=== PATIENT | female | born 1955 | race Caucasian/White ===

== ENCOUNTER 2023-04-15 10:56 | Outpatient (OUT) | payer MEDICARE, SELFPAY ==
--- NOTE | 2023-04-15 10:57 | XR_ITS ---
The [address] [address] Patient Name: ADA TAO MRN: [id number] date: 1955 Sex: F Assigned Patient Location: [facility] Current Patient Location: [facility] Accession/Order Number: [id number] Exam Date: 04/15/2023 11:03 Report Date: 04/15/2023 16:21 At the request of: FAY LIMON Procedure: XR foot LT min 3V PROCEDURE: XR foot LT min 3V HISTORY: LEFT FOOT PAIN COMPARISON: XR foot left 01/21/2023 FINDINGS: BONES:Fusion of the first metatarsophalangeal joint via dorsal plate and screws; no evidence of hardware fracture. No bone fracture dislocation. SOFT TISSUES:No visible soft tissue swelling. EFFUSION:None visible. OTHER: Negative. IMPRESSION: 1. Stable surgical changes without evidence of hardware failure or change in alignment. Electronically authenticated by: SHANTA LEA Date: 04/15/2023 16:21
== END 2023-04-15 10:57 ==
LOC: RAD 10:56
PROVIDERS: PCP Family Medicine; Visit Provider Podiatrist Foot & Ankle Surgery
DX: M20.12 Hallux valgus (acquired), left foot (principal)
CPT/HCPCS: 73630

== ENCOUNTER 2023-06-18 12:57 | Outpatient (OUT) | payer MEDICARE, SELFPAY ==
--- NOTE | 2023-06-18 13:08 | CT_ITS ---
The [address] [address] Patient Name: ADA TAO MRN: [id number] date: 1955 Sex: F Assigned Patient Location: CT Current Patient Location: CT Accession/Order Number: [id number] Exam Date: 06/18/2023 13:02 Report Date: 06/18/2023 13:28 At the request of: CALOS HALLMAN Procedure: CT sinus wo con EXAM: CT sinus wo con HISTORY: D16.4 chronic sinusitis and drainage from the left side for the past year, worsening recently. COMPARISON: 11/01/2020 TECHNIQUE: Multiple thin computed tomograms of the paranasal sinuses were obtained, with sagittal and coronal reconstructions. Radiation reduction techniques and algorithms were utilized during the study. FINDINGS: The paranasal sinuses are well-developed and essentially clear. 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 The ostiomeatal complex on either side is patent. The orbital rims and floors are intact. The mayberry of the sinuses are intact. There is mild deviation of the nasal septum to the right, accompanied by an osteophyte also extending to the right. The nasal passages are widely patent. The temporal bones are out of the [id number]. The soft tissues of the posterior nasopharynx appear intact. CT/CT sinus wo con IMPRESSION: The paranasal sinuses are well-developed. Except for a benign bone structure on the left, the paranasal sinuses are clear. The ostiomeatal complex on either side is patent. There is mild deviation of the nasal septum to the right. The nasal passages are patent. The osseous structures are intact. Similar findings were noted in the prior study. Electronically authenticated by: FAY ROCK Date: 06/18/2023 13:28
== END 2023-06-18 12:58 | disposition home or self-care (01) ==
LOC: CT 12:57
PROVIDERS: PCP Family Medicine; Visit Provider Otolaryngology
DX: D16.4 Benign neoplasm of bones of skull and face (principal)
CPT/HCPCS: 70486

== ENCOUNTER 2023-08-06 08:29 | Outpatient (OUT) | payer MEDICARE, SELFPAY ==
--- NOTE | 2023-08-05 | XR_ITS ---
The [place] [id number] Patient Name: ADA TAO MRN: [id number] date: 1955 Sex: F Assigned Patient Location: [facility] Current Patient Location: [facility] Accession/Order Number: [id number] Exam Date: 08/05/2023 13:15 Report Date: 08/05/2023 16:17 At the request of: FAY LIMON Procedure: XR foot LT min 3V STUDY: XR foot LT min 3V, [id number] HISTORY: LEFT FOOT BUBION ECTOMY FOLLOW UP COMPARISON: Left foot x-ray 04/15/2023. FINDINGS/IMPRESSION: No acute fracture, dislocation, or suspicious osseous lesion. Left first metatarsophalangeal joint arthrodesis hardware is intact and similar alignment. 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 Small plantar calcaneal spur. Electronically authenticated by: ELLIS VILLARREAL Date: 08/05/2023 16:17
== END 2023-08-06 08:30 | disposition home or self-care (01) ==
LOC: RAD 08:30
PROVIDERS: PCP Family Medicine; Visit Provider Podiatrist Foot & Ankle Surgery
DX: M20.12 Hallux valgus (acquired), left foot (principal); Z98.1 Arthrodesis status; M89.572 Osteolysis, left ankle and foot; M77.32 Calcaneal spur, left foot
CPT/HCPCS: 73630

== ENCOUNTER 2023-09-16 12:31 | Outpatient (OUT) | payer MEDICARE, SELFPAY ==
[2023-09-16 13:36] LABS: Thyroid Stimulating Hormone 1.211 uIU/mL (0.358-3.740)
[2023-09-16 14:33] LABS: Free T4 1.04 ng/dL (0.76-1.46)
--- OUTSIDE RECORDS SUMMARY | 2023-10-27 14:21 | XMS_ITS | CCD ---
Author Name Unknown Address [address] [place] [address] Organization [facility] Care Team Providers Care Projection Technician Name Role Phone Joel Hola Hill Attending Unavailable MD Michelle Joshi Primary Care Provider [phone] DO Jeremy Mcpherson Referring Provider [phone] MD Teresa Nunn Attending Provider MD Michelle Joshi Primary Care Provider DO Jeremy Mcpherson Attending Provider DR EDER LUCIO V Consulting Unavailable ADI, DR MICHELLE Srinivasan Primary Care Unavailable FAY LIMON Attending Unavailable FAY LIMON Admitting Unavailable FAY LIMON Consulting Unavailable JOSHI, DR MICHELLE Srinivasan Primary Care Unavailable FAY LIMON Attending Unavailable FAY LIMON Admitting Unavailable JOSHI, DR MICHELLE Srinivasan Primary Care Unavailable HIGHLFAY LIVE Consulting Unavailable FAY LIMON Attending Unavailable FAY LIMON Admitting Unavailable JOSHI, DR MICHELLE Srinivasan Primary Care Unavailable FAY LIMON Consulting Unavailable FAY LIMON Attending Unavailable FAY LIMON Admitting Unavailable CAPELLAN, MIRIAM Consulting Unavailable JOSHI, DR MICHELLE Srinivasan Primary Care Unavailable REQUEST, DR BELL LISTED Consulting Unavaila ble REQUEST, DR BELL LISTED Attending Unavaila ble REQUEST, DR BELL LISTED Admitting Unavaila ble ADI, DR MICHELLE Srinivasan Primary Care Unavailable FAY LIMON Attending Unavailable FAY LIMON Admitting Unavailable WEST, DR EDER Verdin Consulting Unavailable FAY LIMON Consulting Unavailable LIZ OMALLEY Consulting Unavailable TARUN .JR Consulting Unavailable SALUD LAMB Consulting Unavailable BRIDGET KENDALL Consulting Unavailable NAVEED, DR EDER Verdin Consulting Unavailable ADI, DR MICHELLE Srinivasan Primary Care Unavailable BERNADETTE REYES Admitting Unavailable BERNADETTE REYES Attending Unavailable BERNADETTE REYES Consulting Unavailable JOSHI, DR MICHELLE E Primary Care Unavailable BERNADETTE REYES Attending Unavailable BERNADETTE REYES Admitting Unavailable WEST, DR EDER Verdin Consulting Unavailable BERNADETTE REYES Consulting Unavailable DR MICHELLE JOSIH Primary Care Unavailable BERNADETTE REYES Attending Unavailable BERNADETTE REYES Admitting Unavailable WEST, DR EDER Verdin Consulting Unavailable BERNADETTE REYES Consulting Unavailable FAY LIMON Attending Unavailable DR MICHELLE JOSHI Primary Care Unavailable FAY LIMON Admitting Unavailable WEST, DR EDER Verdin Consulting Unavailable FAY LIMON Consulting Unavailable Michelle Joshi Unavailable Jr Sarkar Unavailable Michelle Joshi Primary Care Unavailable Jr Sarkar Admitting Unavailable Jr Sarkar Attending Unavailable Michelle Joshi Primary Care Unavailable Itzkowitz, Jeremy Admitting Unavailable Itzmusa Jeremy Attending Unavailable ITZJEREMY KHAN H Attending Unavailable MICHELLE JOSHI Unavailable Allergies Allergy Classification Reported Allergen(s) Allergy Type Date of Onset Reaction(s) Facility (2 sources) Cream cheese Propensity to adverse reactions Gastrointestinal Upset [facility] (3 sources) egg extract; Translations: [Egg] Drug Allergy Diarrhea [facility] (2 sources) toft's ice cream Propensity to adverse reactions Gastrointestinal Upset [facility] (1 source) Ramipril Drug Allergy [facility] (4 sources) Phenazopyridine Drug Allergy 014 Unknown [employer] Other (4 sources) Eggs or Egg-derived Products Drug allergy 015 Unknown [employer] Other Medications Current Medications Medication Drug Class(es) Dates Sig (Normalized) Sig (Original) Calcium-Vitamin D3-Vitamin K (Viactiv) 650 mg-12.5 mcg-40 mcg Tablet,Chewable (2 sources) Start: 02-02-2020 take 1 tablet by mouth twice daily Calcium-Vitamin D3-Vitamin K (Viactiv) 650 mg-12.5 mcg-40 mcg Tablet,Chewable Active 1 TAB PO Twice daily February 02, 2020 12:00am Start: 02-02-2020 take 1 tablet by suze th twice daily Calcium-Vitamin D3-Vitamin K (Viactiv) 650 mg-12.5 mcg-40 mcg Tablet,Chewable Active 1 TAB PO Twice daily February 01, 2020 11:00pm cholecalciferol 0.01 mg oral capsule (2 sources) Vitamin D Start: 02-02-2020 take 1 capsule by mouth once daily Cholecalciferol (Vitamin D3) (Vitamin D3) 10 mcg (400 unit) Capsule Active 400 UNIT PO Daily February 02, 2020 12:00am famotidine 40 mg oral tablet (6 sources) Histamine-2 Receptor Antagonist Start: 08-28-2023 take 1 tablet by mouth at bedtime Famotidine 40 MG 1 tablet Orally at bedtime for 30 days Aug, Active Start: 12-05-2020 End: 04-16-2021 take 20 mg by mouth once daily Famotidine Discontinued 20 MG PO Daily December 05, 2020 1:00am April 16, 2021 1:31pm letrozole 2.5 mg oral tablet (16 sources) Aromatase Inhibitor Start: 11-04-2022 take 2.5 mg by mouth once daily Letrozole 2.5MG Letrozole( 2.5MG Oral daily ) Active -Hx Entry Oral daily for 0 *Pick strength-form from Codewise for eRX* Oct, Active Start: 10-16-2020 End: 10-17-2022 take 2.5 mg by mouth once daily Letrozole Discontinued 2.5 MG PO Daily 90 90 November 29, 2021 1:10pm October 17, 2022 3:14pm montelukast 10 mg oral tablet (6 sources) Leukotriene Receptor Antagonist Start: 02-02-2020 take 1 tablet by mouth once daily Montelukast Sodium 10MG Montelukast Sodium 10MG, 1 (one) Tablet Tablet daily # 90, 01/20/2022, Ref. x2. Active Oral daily for 0 *Pick strength-form from [employer] for eRX* Jan, Active omeprazole 40 mg delayed release oral capsule (6 sources) Proton Pump Inhibitor Start: 08-28-2023 take 1 capsule by mouth once daily Omeprazole 40 MG 1 capsule 30 minutes before morning meal Orally Once a day for 30 days Aug, Active Start: 12-05-2020 End: 04-16-2021 take 20 mg by mouth once daily Omeprazole Discontinued 20 MG PO Daily December 05, 2020 1:00am April 16, 2021 1:31pm Completed/Discontinued Medications Medication Drug Class(es) Dates Sig (Normalized) Sig (Original) acetaminophen 325 mg / HYDROcodone bitartrate 5 mg oral tablet (2 sources) Opioid Agonist Start: 02-07-2020 End: 05-30-2020 take 1 tablet by mouth every four to six hours Hydrocodone-Aceta minophen ([place]) 5-325 mg tablet Discontinued 1 - 2 TAB PO EVERY 4-6 HOURS 20 February 07, 2020 May 30, 2020 1:36pm alendronic acid 70 mg oral tablet (2 sources) Bisphosphonate Start: 02-02-2020 End: 10-17-2022 take 70 mg by mouth every week Alendronate Discontinued 70 MG PO every week February 02, 2020 12:00am October 17, 2022 3:04pm amoxicillin 500 mg / clavulanate 125 mg oral tablet (4 sources) Penicillin-class Antibacterial Start: 10-16-2020 End: 12-05-2020 take 1 tablet by mouth three times daily Amoxicillin-Pot Clavulanate (Augmentin) 500-125 mg Tablet Discontinued 1 TAB PO Three times daily 07 09October 16, 2020 4:04pm December 05, 2020 2:38pm anastrozole 1 mg oral tablet (8 sources) Aromatase Inhibitor Start: 02-23-2020 End: 10-16-2020 take 1 mg by mouth once daily Anastrozole Discontinued 1 MG PO Daily 90 90 February 23, 2020 9:41am October 16, 2020 3:46pm Hyaluronic Ls-Wysncejvj-Qmay (Radiaplexrx) Gel (2 sources) Start: 04-03-2020 End: 05-30-2020 Hyaluronic Kk-Azbncidfy-Argc (Radiaplexrx) Gel Discontinued 1 APPLIC TOPICAL Three times daily April 03, 2020 12:00am May 30, 2020 1:36pm Start: 04-03-2020 End: 05-30-2020 Hyaluronic Wx-Qggmynoro-Ehnk (Radiaplexrx) Gel Discontinued 1 APPLIC TOPICAL Three times daily April 02, 2020 11:00pm May 30, 2020 12:36pm ibuprofen 600 mg oral tablet (2 sources) Nonsteroidal Anti-inflammatory Drug Start: 02-07-2020 End: 05-30-2020 Ibuprofen Discontinued 600 MG PO EVERY 4-6 HOURS 28 08February 07, 2020 12:00am May 30, 2020 1:36pm do not exceed 4 doses in a 24 hour period Problems Active Problems Problem Classification Problem Date Documented Date Episodic/Chronic Acquired foot deformities (10 sources) Hallux valgus (acquired), left foot; Translations: [Other hammer toe(s) (acquired), left foot] Onset: 08-04-2022 Chronic Acquired foot deformities (13 sources) Other deformities of toe(s) (acquired), left foot; Translations: [Bunion of left foot] Onset: 07-23-2022 Episodic Asthma (5 sources) Unspecified asthma, uncomplicated; Translations: [Uncomplicated asthma] Onset: 04-13-2014 Chronic Cancer of breast (10 sources) Malignant tumor of breast ; Translations: [Malignant neoplasm of unspecified site of unspecified female breast] 03-22-2020 Chronic Chronic obstructive pulmonary disease and bronchiectasis (4 sources) Bronchitis; Translations: [Bronchitis, not specified as acute or chronic] Episodic Esophageal disorders (6 sources) Gastroesophageal reflux disease; Translations: [Gastro-esophageal reflux disease without esophagitis] Chronic Nutritional deficiencies (2 sources) Vitamin D deficiency; Translations: [Vitamin D deficiency, unspecified] Chronic Osteoarthritis (1 source) Unspecified osteoarthritis, unspecified site; Translations: [UNSPECIFIED OSTEOARTHRITIS UNS SITE] Onset: 08-21-2022 Chronic Osteoporosis (12 sources) Osteoporosis; Translations: [Age-related osteoporosis without current pathological fracture] Onset: 08-21-2022 10-16-2021 Chronic Other bone disease and musculoskeletal deformities (2 sources) Osteopenia; Translations: [Other specified disorders of bone density and structure, unspecified site] 04-17-2022 Episodic Other bone disease and musculoskeletal deformities (1 source) Other specified disorders of bone density and structure, unspecified site; Translations: [Disorder of bone and cartilage, unspecified] 10-17-2022 Episodic Other circulatory disease (4 sources) Elevated blood-pressure reading without diagnosis of hypertension; Translations: [Elevated blood-pressure reading, without diagnosis of hypertension] Episodic Other nutritional; endocrine; and metabolic disorders (4 sources) Body mass index 25-29 - overweight; Translations: [Body mass index (BMI) 27.0-27.9, adult] Episodic Other screening for suspected conditions (not mental disorders or infectious disease) (4 sources) Abnormal findings on diagnostic imaging of breast; Translations: [Other abnormal and inconclusive findings on diagnostic imaging of breast] Episodic Other skin disorders (1 source) Localized swelling, mass and lump, neck; Translations: [Localized swelling, mass and lump, neck] Onset: 09-14-2023 Episodic Other upper respiratory disease (4 sources) Allergic rhinitis; Translations: [Allergic rhinitis, unspecified] Chronic Other upper respiratory disease (2 sources) Congestion of nasal sinus; Translations: [Nasal congestion] 10-16-2020 Episodic Other upper respiratory disease (1 source) Nasal congestion; Translations: [Other disease of nasal cavity and sinuses] 10-17-2022 Episodic Spondylosis; intervertebral disc disorders; other back problems (1 source) Cervicalgia; Translations: [Cervicalgia] Onset: 09-14-2023 Episodic Thyroid disorders (4 sources) Hypothyroidism; Translations: [Hypothyroidism, unspecified] Chronic Unclassified (1 source) CONTACT W/AND (SUSP) EXPOS COVID-19; Translations: [CONTACT W/AND (SUSP) EXPOS COVID-19] Onset: 08-13-2022 Past or Other Problems Problem Classification Problem Date Documented Da te Episodic/Chronic Cancer of breast (2 sources) Personal history of malignant neoplasm of breast; Translations: [Personal history of malignant neoplasm of breast] Onset: 08-21-2022 Episodic Other aftercare (1 source) Other prison (current) drug therapy; Translations: [[employer] MANAGER CURRENT DRUG THERAPY] Onset: 08-21-2022 Episodic Other non-traumatic joint disorders (4 sources) Arthralgia of the lower leg; Translations: [Pain in right knee] Onset: 05-29-2015 Episodic Other upper respiratory infections (5 sources) Acute maxillary sinusitis; Translations: [Acute recurrent maxillary sinusitis] Onset: 03-21-2019 Episodic Results Test Name Value Interpretation Reference Range Facil ity US thyroidon 09-14-2023 thyroid [facility] Main [address] [address] Ultrasound Report Signed Patient: Laura Cunha MR#: [id number] 5 : 1955 Acct:[id number] Age/Sex: 68 / F ADM Date: 09/14/23 Loc: Room: Type: [facility] Attending Dr: Jr Sarkar APRN Ordering Provider: Jr Sarkar APRN Date of Service: 09/14/23 US/US thyroid: Neck pain;Neck nodule Copies to: Jr Sarkar APRN LIMITED ULTRASOUND - left neck CLINICAL DATA: Left neck pain and nodule in the submandibular region. COMPARISON: None The left submandibular area was scanned at the site of patient's symptoms. The stroboscope operator did not identify any obvious cystic or solid masses or pathologic adenopathy. The thyroid gland was also evaluated. The right lobe measures 3.8 x 1.1 x 1.1 cm. The left lobe measures 3.7 x 1.1 x 1.1 cm. The isthmus measures 1 - 2 mm. There is bilateral thyroid nodularity and the largest areas were measured. On the right medially toward the isthmus there is a complex cystic and solid nodule measuring 8 x 5 x 5 mm. There is a small colloid cyst at the lower pole on the right measuring 3 mm in size. There is also another subtle mixed echogenicity nodule at the midpole measuring 4 mm. On the left, there is a hypoechoic nodular area along the left aspect of the isthmus measuring 7 x 5 x 4 mm. At the midpole laterally there is another mixed echogenicity nodular area measuring 5 x 5 x 3 mm. US/US thyroid IMPRESSION: NO ULTRASOUND ABNORMALITIES IDENTIFIED AT THE SITE OF PALPABLE CONCERN IN THE LEFT SUBMANDIBULAR REGION. SMALL BILATERAL THYROID NODULES. Impression dictated by: Rachael Gomez M.D.09/14/2023 5:49 PM Dictation Location: [place] [address] Tech: Taryn Carmenza Transcribed By: ESTRADA 09/14/231748 Dictated By: Rachael Gomez MD 09/14/231739 Signed By: 09/14/231748 [facility] [place] [facility] MM diagnostic mammo BI w/CAD on 02-25-2023 MM diagnostic mammo BI w/CAD [facility] [address] Mammography Report Signed Patient: Laura Cunha MR#: [id number] 5 : 1955 Acct:[id number] Age/Sex: 67 / F ADM Date: 02/25/23 Loc: [place] Room: Type: [facility] Attending Dr: Jeremy Mcpherson DO Copies to: DO Michelle Astudillo MD Ordering Provider: Jeremy Mcpherson DO Date of Service: 02/25/23 MM/MM diagnostic mammo BI w/CAD: Yrly mamms;History of breast cancer CLINICAL DATA: History of left-sided breast cancer status post lumpectomy with radiation. BilateralDIAGNOSTIC MAMMOGRAM - WITH TOMOSYNTHESIS AND CAD COMPARISON:Mammograms dating back to 2019 Tomosynthesis imaging was obtained using low-dose digital technique. This examination was reviewed with the aid of CAD. FINDINGS: The breasts are composed of scattered fibroglandular densities. Stable post treatment changes left breast. No new areas of architectural distortion, worrisome masses or suspicious microcalcifications. MM/MM diagnostic mammo BI w/CAD IMPRESSION: NO MAMMOGRAPHIC EVIDENCE OF MALIGNANCY. ROUTINE FOLLOW-UP IS RECOMMENDED IN ONE YEAR. RESULT CODE: 1 Negative DENSITY CODE: 2 (approximately 25-50% glandular) FOLLOW UP: 1YR The false-negative rate of mammography is approximately 10-percent. Management of a palpable abnormality must be based on clinical grounds. Patient was entered into a reminder system with a target due date for the next mammogram. Impression dictated by: Bertrand Mark Jr., D.OErin02/25/2023 2:09 PM Dictation Location: [facility] Transcribed By: [facility] 02/25/23 1409 Dictated By: Bertrand Mark Jr, DO 02/25/23 1408 Signed By: 02/25/23 1409 [facility] POINT OF CARE GLUCOSEon Glucose [Mass/Vol] 93 mg/dL Normal 74-106 [facility] Comment on above: Performed By: #### P OCGLUC #### [facility] [address] [address] [address] Niraj Hernandez Covid-19 PCR (CVDTB)on SARS-CoV-2 (COVID-19) RNA LASHELL+probe Ql (Unsp spec) Not detected Normal NOT DETECTED [facility] Comment on above: Result Comment: This test is not yet approved or cleared by the [place] FDA. When there are no FDA-approved or cleared tests available, and other criteria are met, FDA can make tests available under an emergency access mechanism called an Emergency Use Authorization (EUA). The EUA for this test is supported by the [place] of Health and Human Service's (HHS's) declaration that circumstances exist to justify the emergency use of in vitro diagnostics for the detection and/or diagnosis of the virus that causes COVID-19. This EUA will remain in effect (meaning this test can be used) for the duration of the COVID-19 declaration justifying emergency of IVDs, unless it is terminated or revoked by FDA (after which the test may no longer be used). When diagnostic testing is negative, the possibility of a false negative should be considered in the context of a patient's recent exposures and the presence of clinical signs and symptoms consistent with SARS-CoV-2. Performed By: #### C VDTBH #### [facility] [address] [place], [place] [address] Dr. Niraj Hernandez CBC AUTO DIFFon 06-28-2022 BASO # 0.0 103/ul Normal 0.0-0.1 [facility] Comment on above: Performed By: #### D ATCBC ####[facility] [address] [place], [place] [address]NlErin Hernandez Basophils/100 WBC (Bld) 0.4 % Normal 0.2-2.[address] [facility] Comment on above: Performed By: #### D ATCBC ####[facility] [address] [place], [place] [address]LpErin Hernandez EO # 0.9 103/ul Critically high 0.0-0.7 [facility] Comment on above: Performed By: #### D ATCBC ####[facility] [address] [place], [place] [address]WzErin Hernandez Eosinophils/100 WBC (Bld) 12.4 % Critically high 0.9-7 .0 [facility] Comment on above: Performed By: #### D ATCBC ####[facility] [address] [place], [place] [address]Dr. Olyalogan David Erythrocyte distribution wid th (RBC) [Ratio] 13.5 % Normal 11.0-15.0 [facility] Comment on above: Performed By: #### D ATCBC ####[facility] [address] [place], [place] [address]Dr. Niraj Hernandez Hematocrit (Bld) [Volume fraction] 43.2 % Normal 3 6.0-48.0 [facility] Comment on above: Performed By: #### D ATCBC ####[facility] [address] [place], [place] [address]Dr. Niraj Hernandez Hemoglobin (Bld) [Mass/Vol] 14.3 g/dL Normal 12.0-16. 0 [facility] Comment on above: Performed By: #### D ATCBC ####[facility] [address] [place], [place] [address]Dr. Niraj Hernandez IG # 0.01 10e3/ul Normal 0.00-0.03 [facility] Comment on above: Performed By: #### D ATCBC ####[facility] [address] [place], [place] [address]Dr. Niraj Hernandez IG % 0.1 % Normal 0.0-0.5 [facility]ital Comment on above: Performed By: #### D ATCBC ####[facility] [address] [place], [place] [address]Dr. Niraj Hernandez LYMPH # 2.8 103/ul Normal 1.2-3.8 [facility]ital Comment on above: Performed By: #### D ATCBC ####[facility] [address] [place], [place] [address]Dr. Niraj Hernandez Lymphocytes/100 WBC (Bld) 38.4 % Normal 20.5-60.0 [facility] Comment on above: Performed By: #### D ATCBC ####[facility] [address] [place], [place] [address]Dr. Niraj Hernandez MCH (RBC) [Entitic mass] 29.8 pg Normal 26.7-34.0 [facility] Comment on above: Performed By: #### D ATCBC ####[facility] [address] [place] [address]Dr. Niraj Hernandez MCHC (RBC) [Mass/Vol] 33.1 g/dL Normal 29.9-35.2 [facility] Comment on above: Performed By: #### D ATCBC ####[facility] [address] [place], [place] [address]Dr. Niraj Hernandez MCV (RBC) [Entitic vol] 90.0 fL Normal 81.0-99.[address] [facility] Comment on above: Performed By: #### D ATCBC ####[facility] [address] [place], [place] [address]Dr. Niraj Hernandez MONO # 0.6 103/ul Normal 0.3-0.8 [facility] Comment on above: Performed By: #### D ATCBC ####[facility] [address] [place], [place] [address]Dr. Niraj Hernandez Monocytes/100 WBC (Bld) 8.4 % Normal 1.7-12.[address] [facility] Comment on above: Performed By: #### D ATCBC ####[facility] [address] [place], [place] [address]Dr. Niraj Hernandez NEUT # 2.9 103/ul Normal 1.4-6.5 [facility] Comment on above: Performed By: #### D ATCBC ####[facility] [address] [place], [place] [address]Dr. Niraj David Neutrophils/100 WBC (Bld) 40.3 % Critically low 43.0-7 5.0 [facility] Comment on above: Performed By: #### D ATCBC ####[facility] [address] [place], [place] [address]Dr. Niraj David Platelet mean volume (Bld) [Entitic vol] 9.1 fL Critically low 9.5-13.5 [facility] pital Comment on above: Performed By: #### D ATCBC ####[facility] [address] [place], [place] [address]Mj. Niraj Hernandez PLT 258 103/ul Normal 150-450 [facility] Comment on above: Performed By: #### D ATCBC ####[facility] [address] [place], [place] [address]Ow. Niraj Hernandez RBC 4.80 106/ul Normal 4.20-5.40 [facility] Comment on above: Performed By: #### D ATCBC ####[facility] [address] [place], [place] [address]Fk. Niraj Hernandez WBC 7.3 103/ul Normal 4.0-11.0 [facility] Comment on above: Performed By: #### D ATCBC ####[facility] [address] [place] [id number]. Niraj Hernandez BRAVO- BMP WITH LIPIDon 2021 Anion gap [Moles/Vol] 11.9 mmol/L Normal [facility] Comment on above: Performed By: #### D ATBMP #### [facility] [address] [address] [address] Niraj Hernandez Calcium [Mass/Vol] 9.7 mg/dL Normal 8.5-10.1 [facility] Comment on above: Performed By: #### D ATBMP #### [facility] [address] [address] [address] Niraj Hernandez Chloride [Moles/Vol] 101 mmol/L Normal 98-107 [facility] Comment on above: Performed By: #### D ATBMP #### [facility] [address] [address] [address] Niraj Hernandez Cholesterol [Mass/Vol] 208 mg/dL Critically high <=200 [facility] Comment on above: Performed By: #### D ATBMP #### [facility] [address] [address] [address] Niraj Hernandez Cholesterol in HDL [Mass/Vol] 66 mg/dL Critically high 4 0-60 [facility] Comment on above: Performed By: #### D ATBMP #### [facility] [address] [address] [address] Niraj Hernandez Cholesterol in LDL [Mass/Vol] 125.2 mg/dL Normal [facility] Comment on above: Performed By: #### D ATBMP #### [facility] [address] [address] [address] Niraj Hernandez CO2 [Moles/Vol] 31.1 mmol/L Normal 21.0-32.0 [facility] Comment on above: Performed By: #### D ATBMP #### [facility] [address] [address] [address] Niraj Hernandez Creatinine [Mass/Vol] 0.86 mg/dL Normal 0.55-1.02 [facility] Comment on above: Performed By: #### D ATBMP #### [facility] [address] [address] [address] Niraj Hernandez EGFR-AF ERITREAN >60 Normal >=60 [facility] Comment on above: Performed By: #### D ATBMP #### [facility] [address] [address] [address] Niraj Hernandez EGFR-NON AF ERITREAN >60 Normal >=60 [facility] Comment on above: Performed By: #### D ATBMP #### [facility] [address] [address] [address] Niraj Hernandez Glucose [Mass/Vol] 103 mg/dL Normal 74-106 [facility] Comment on above: Performed By: #### D ATBMP #### [facility] [address] [place] [address] Dr[address] Niraj Hernandez HDL NORMAL > or = 60 mg/dl - LO W CARDIOVASCULAR RISK <40 mg/dl - HIGH CARDIOVASCULAR RISK Normal [facility] Comment on above: Performed By: #### D ATBMP #### [facility] [address] [address] [address] Niraj Hernandez LDL CALC NORMAL SEE BELOW Normal [facility] Comment on above: Result Comment: <100 mg/dl OPTIMAL 100 - 129 mg/dl NEAR OR ABOVE OPTIMAL 130 - 159 mg/dl BORDERLINE HIGH 160 - 189 mg/dl HIGH >190 mg/dl VERY HIGH Performed By: #### D ATBMP #### [facility] [address] [address] [address] Niraj Hernandez Potassium [Moles/Vol] 4.0 mmol/L Normal 3.5-5.1 [facility] Comment on above: Performed By: #### D ATBMP #### [facility] [address] [address] [address] Niraj Hernandez Sodium [Moles/Vol] 140 mmol/L Normal 136-145 [facility] Comment on above: Performed By: #### D ATBMP #### [facility] [address] [place] [address] Dr. Niraj Hernandez Triglyceride [Mass/Vol] 84 mg/dL Normal <=[address] [facility] Comment on above: Performed By: #### D ATBMP #### [facility] [address] [address] [address] Niraj Hernandez Urea nitrogen [Mass/Vol] 17.0 mg/dL Normal 7.0-18.0 [facility] Comment on above: Performed By: #### D ATBMP #### [facility] [address] [place] [address] Dr. Niraj Hernandez Urea nitrogen/Creatinine [Mass ratio] 19.8 mg/mg Normal [facility] Comment on above: Performed By: #### D ATBMP #### [facility] [address] [place] [address] Dr. Niraj Hernandez VLDL CALC 16.8 mg/dL Normal [facility] Comment on above: Performed By: #### D ATBMP #### [facility] [address] [place], [place] [id number] Dr. Niraj Hernandez Vital Signs Date Time Vital Sign Value Performing Clinician Facility 06-29-2023 13:30-0400 Body height 154.94 cm Michelle Joshi Other [facility] Other 06-29-2023 13:30-0400 Body mass index (BMI) [Ratio] 27.21 kg/m2 Michelle Joshi Other [facility] Other 06-29-2023 13:30-0400 Body weight 65.32 kg Michelle Joshi Other [facility] Other 06-29-2023 13:30-0400 Diastolic blood pressure 78 mm[Hg] Michelle Joshi Other [facility] Other 06-29-2023 13:30-0400 Systolic blood pressure 138 mm[Hg] Michelle Joshi Other [facility] Other 10-17-2022 14:06-0500 Body temperature 97.8 [degF] MD Michelle Joshi Work Phone: [facility] 10-17-2022 14:06-0500 Body weight 64.9 kg MD Michelle Joshi Work Phone: [facility] 10-17-2022 14:06-0500 Diastolic blood pressure 87 mm[Hg] MD Michelle Joshi Work Phone: [facility] 10-17-2022 14:06-0500 Heart rate 102 /min MD Michelle Joshi Work Phone: [facility] 10-17-2022 14:06-0500 Respiratory rate 16 /min MD Michelle Joshi Work Phone: [facility] 10-17-2022 14:06-0500 SaO2% (BldA) [Mass fraction] 99 % MD Michelle Joshi Work Phone: [facility] 10-17-2022 14:06-0500 Systolic blood pressure 122 mm[Hg] MD Michelle Joshi Work Phone: [facility] 12-05-2020 13:41-0500 Body height 154.94 cm MD Michelle Joshi Work Phone: [facility] Encounters Encounter Date Encounter Type Care Provider Facility Start: 09-25-2023 End: 09-25-2023 ambulatory JEREMY MCPHERSON Not Available Start: 09-17-2023 End: 09-17-2023 ambulatory Michelle Joshi Other [facility] Other Start: 09-17-2023 [address]phone [address] Joshi [facility] Start: 09-14-2023 End: 09-14-2023 ambulatory Michelle Joshi Facility:[facility] Start: 09-03-2023 End: 09-03-2023 ambulatory Jr Sarkar Other [facility] Other Start: 09-03-2023 Telephone encounter Jr Chavez PG [employer] Manager Start: 06-29-2023 End: 06-29-2023 ambulatory Michelle Joshi Other [facility] Other Start: 06-29-2023 Patient encounter procedure Michelle Joshi [facility] Start: 02-25-2023 End: 02-25-2023 ambulatory Michelle Joshi Facility:[facility] Start: 02-25-2023 End: 02-25-2023 ambulatory MD Michelle Joshi Work Phone: [facility] Work Phone: Start: 02-25-2023 End: 02-25-2023 Patient encounter procedure MD Michelle Joshi Work Phone: [facility] Work Phone: Start: 01-21-2023 End: 01-22-[address] EDER LUCIO Facility:[facility] Start: 11-04-2022 End: 11-05-[address] EDER LUCIO Facility:[facility] Start: 10-17-2022 End: 10-17-2022 ambulatory MD Michelle Joshi Work Phone: [facility] Work Phone: Start: 10-17-2022 End: 12-09-2022 Registered Recurring MD Michelle Joshi [facility] Phone: [facility] Start: 09-23-2022 End: 09-24-[address] MICHELLE JOSHI Facility:[facility] Start: 09-23-2022 Adult health examination Zunilda Joshi Other [facility] Other Start: 09-04-2022 End: 09-05-[address] MICHELLE JOSHI Facility:[facility] Start: 08-14-2022 End: 08-14-[address] MICHELLE JOSHI Facility:[facility] Start: 08-13-2022 Encounter for preprocedural laboratory examination [facility] Start: 08-12-2022 End: 08-12-[address] MICHELLE JOSHI Facility:[facility] Start: 08-11-2022 End: 08-12-[address] MICHELLE JOSHI Facility:[facility] Start: 08-11-2022 End: 08-12-2022 Encounter for preprocedural laboratory examination DR MICHELLE JOSHI Facility:[facility] Start: 08-04-2022 Encounter for preprocedural cardiovascular examination FAY LIMON [facility] Start: 07-31-2022 End: 08-01-[address] MICHELLE JOSHI Facility:[facility] Start: 07-31-2022 End: 08-01-2022 Encounter for preprocedural cardiovascular examination DR MICHELLE JOSHI Facility:[facility] Start: 07-23-2022 End: 07-24-2022 ambulatory FAY LIMON Facility:[facility] Start: 06-28-2022 End: 06-29-[address] MICHELLE JOSHI Facility:[facility] Start: 04-17-2022 ambulatory Hola Maldonado [facility] ity:[id number] Procedures Date Procedure Procedure Detail Performing Clinician Start: 02-25-2023 Bilateral mammography Sierra Joshi Work Phone: Start: 04-24-2021 Dual energy X-ray absorptiometry MD Michelle Joshi Work Phone: Start: 05-29-2015 Screening for malign ant neoplasm of breast Michelle Joshi Other Screening for malign ant neoplasm of colon Michelle Joshi Other Plan of Treatment Date Care Activity Detail Author [facility] Payers Date Payer Category Payer Private Health Insurance [id number] 1960 Self-pay [id number] 1955 Unknown [id number] 1955 Unknown [id number] 1954 Unknown [id number] 1954 Unknown [id number] 1954 Unknown [id number] 1954 Unknown [id number] 1954 Unknown [id number] 1954 Unknown [id number] 1954 Unknown [id number] [id number] 1954 Unknown [id number] [id number] 1954 Unknown [id number] Medicare [id number] Unknown MMO [id number] Unknown Regular Insurance [id number] Unknown [id number] Social History Date Type Detail Facility Start: 04-17-2022 End: 10-17-2022 Tobacco smoking status NHIS Never smoked tobacco (finding) [facility] Start: 1955 Sex Assigned At Female F [facility] Sex Assigned At Sex Assigned At Bir th [facility] Other Clinical Notes 02-23-2020 to 06-29-2023 Note Date & Type Note Facility 06-29-2023 Evaluation note Encounter Date Diagnosis Assessment Notes Jun, Medicare annual wellness visit, subsequent (ICD-10 - Z00.00) Personalized health advice was given to the beneficiary including a written plan for screenings discussed and provided. Advanced care planning reviewed and/or information given as requested. Additional counseling was provided here today in regards to, [ ]. The above visit was performed by [ ], under direct supervision of [ ]. Document reviewed and amended by provider signed below. Jun, Postnasal drip (ICD-10 - R09.82) Reviewed CT of sinuses from 06/18. She has not had a laryngoscope exam. With her breast cancer history she is concerned that her intermittent LN in L anterior neck is cancer. Reassurance provided. Recommended flonase until her followup appt with Dr. Little on 07/08. [facility] Other 03-15-2023 NotePROCEDURE: XR FOOT LT MIN 3 VIEWS COMPARISON: 11/04/2022 HISTORY: Pain in left foot FINDINGS: BONES:Stable fusion first metatarsal-phalangeal joint with a dorsal plate and screws. Stable resection head of 2nd proximal phalynx SOFT TISSUES:Negative. No visible soft tissue swelling. EFFUSION:None visible. OTHER: Negative. IMPRESSION: Stable exam Electronically authenticated by: EDER LUCIO Date: 2023-01-21 14:[address] [place], [place] [address]12-27-2022 NotePROCEDURE: XR FOOT LT MIN 3 VIEWS COMPARISON: 09/23/2022 HISTORY: Pain in left foot FINDINGS: BONES:Stable fusion the first metatarsal phalangeal joint with a dorsal plate and multiple screws. Remote resection head of the second proximal phalanx. No acute fracture, dislocation or mechanical failure SOFT TISSUES:Negative. No visible soft tissue swelling. EFFUSION:None visible. OTHER: Negative. IMPRESSION: Stable fusion first metatarsal-phalangeal joint Electronically authenticated by: EDER LUCIO Date: 2022-11-04 16:53[facility]11-15-2022 NotePROCEDURE: XR FOOT LT MIN 3 VIEWS COMPARISON: None. HISTORY: Pain in left foot FINDINGS: BONES:Fusion the first metatarsal-phalangeal joint with a dorsal plate and screws. No acute fracture, dislocation or mechanical failure. SOFT TISSUES:Negative. No visible soft tissue swelling. Interval removal of surgical skin cathleen EFFUSION:None visible. OTHER: Negative. IMPRESSION: Stable first metatarsal-phalangeal joint fusion Electronically authenticated by: EDER LUCIO Date: 2022-09-23 15:48[facility]10-27-2022 NotePROCEDURE: XR FOOT LT MIN 3 VIEWS COMPARISON: 08/14/2022 HISTORY: Pain in left foot FINDINGS: BONES:Fusion of the first metatarsal-phalangeal joint with a plate and screws. No acute fracture or dislocation. SOFT TISSUES:Soft tissue swelling with surgical skin cathleen EFFUSION:None visible. OTHER: Negative. IMPRESSION: Stable first metatarsal-phalangeal joint fusion Electronically authenticated by: EDER LUCIO Date: 2022-09-04 19:07[facility]10-06-2022 NotePROCEDURE: XR FOOT LT MIN 3 VIEWS COMPARISON: 07/23/2020 HISTORY: Surgical procedure FINDINGS: BONES:Interval reduction in hallux valgus with first metatarsal-phalangeal joint fusion utilizing a dorsal plate and multiple screws. Anatomic alignment.. SOFT TISSUES:Soft tissue swelling and surgical skin cathleen EFFUSION:None visible. OTHER: Bone detail obscured by a posterior cast IMPRESSION: First metatarsal-phalangeal joint fusion Electronically authenticated by: EDER LUCIO Date: 2022-08-14 17:44[facility]10-06-2022 NoteEXAM: XR FOOT LT 2V HISTORY: Surgical procedure COMPARISON: None. TECHNIQUE: 13 fluoroscopic images FINDINGS: Fluoroscopic images demonstrate reduction in hallux valgus and dorsal fusion of the first metatarsal-phalangeal joint with a plate and screws IMPRESSION: First metatarsal-phalangeal joint fusion Electronically authenticated by: EDER LUCIO Date: 2022-08-14 17:42[facility]09-14-2022 NotePROCEDURE: XR FOOT LT MIN 3 VIEWS COMPARISON: None. HISTORY: Pain in left foot FINDINGS: BONES:Marked hallux valgus. No acute fracture or dislocation. SOFT TISSUES:Negative. No visible soft tissue swelling. EFFUSION:None visible. OTHER: Negative. IMPRESSION: Marked hallux valgus Electronically authenticated by: EDER LUCIO Date: 2022-07-23 13:13[facility]06-09-2022 Progress note Author Hola Maldonado [facility] April 17, 2022 2:18pm Note Date/Time April 17, 2022 2:04p [facility] [place] [address] Hem/Onc Follow Up Note - OP Signed Patient: Laura Cunha MR#: [id number] : 1955 Acct:[id number] Age/Sex: 66 / F Type: REG RCR Copies to: DO Michelle Astudillo MD~ Subjective Date/Time of Service: Date of Service: 04/17/2022 Time of Service: 14:04 Chief Complaint: Patient is here today for 6 month follow up visit for breast cancer. She had her mamogram back in February 2022 HPI: Laura presents in follow-up on letrozole. Laura is a 66-year-old female who presented 02/23/20 with breast cancer. She underwent left lumpectomy and sentinel lymph node biopsy 02/07/20, pathology reported a 1 cm ER positive, MD positive, HER-2 negative invasive ductal carcinoma with tubulo- ?lobular features, grade 1, 0 of 4 lymph nodes involved. After radiation she was started on anastrazole February 2020. In September 2020 shewas seen in follow-up with complaint of new right shoulder pain. The anastrozole was stopped, and the right shoulder pain resolved. She started letrozole 2.5 mg daily and she has tolerated this medicine really well without any problems. Specifically there are no complaints of joint pain. Her DEXA scan in April 2021 showed osteopenia in L spine (T -1.2). Her last mammogram in February 2022 was benign. - Summary of Therapies Summary of Therapies: Anastrozole started February 2020. This was then changed to letrozole due to intolerance to anastrozole. Subjective/ROS - Narrative: Constitutional: [No fever or weight loss.] Eyes: [No visual changes or eye pain.] Ear, Nose and throat: [No congestion, sore throat, sinusitis or ear pain.] Cardiovascular: [No palpitations, dyspnea on exertion, edema, syncope or claudication.] Respiratory: [No shortness of breath, cough, congestion, wheezing or sputum production.] Gastrointestinal: [No abdominal pain, hematemesis, melena, nausea, vomiting, diarrhea, or reflux disease.] Genitourinary: [No dysuria, urgency, or burning with urination.] Musculoskeletal: [No muscle or joint pain. No current cervical, thoracic or lumbar pain or immobility.] Skin: [No rash, pruritus, ulcerations.] Neurologic: [No headache, vertigo, weakness, numbness or tingling. No syncope described.] Endocrine: [No polyuria, polydipsia, heat or cold intolerance. No history of thyroid disease.] Psychiatric: [No hallucinations, new stressors, or change in sleep patterns.] Hematologic: [No abnormal bleeding or bruising. No lymphadenopathy noted.] Immunologic: [No history of frequent infections or delayed wound healing.] [facility] - Medical History Medical History: Medical History (Last Reviewed 03/22/20 @ 14:19 by Teresa Nunn MD) Asthma Breast cancer left Endometriosis determined by laparoscopy Nasal drainage Osteoporosis - Surgical History Surgical History: Surgical History (Last Reviewed 03/22/20 @ 14:19 by Teresa Nunn MD) History of nasal cauterization hx nasal fissure - Family History Family History: Family History (Last Reviewed 03/22/20 @ 14:19 by Teresa Nunn MD) Mother Renal failure HTN (hypertension) Father Pancreatic cancer Brother Pancreatitis - Social History Smoking Status: Never smoker Substance Use Type: None Home Medications & Allergies Allergies egg Adverse Reaction (Verified 04/17/22 13:32) Diarrhea cream cheese Adverse Reaction (Uncoded 04/17/22 13:32) Gastrointestinal Upset toft's ice cream Adverse Reaction (Uncoded 04/17/22 13:32) Gastrointestinal Upset Home Medications alendronate 70 mg tablet 70 mg PO QWEEK 02/02/20 [History Confirmed 04/17/22] calcium 650 mg-vitamin D3 12.5 mcg-vitamin K 40 mcg chewable tablet (Viactiv) 1 tab PO BID 02/02/20 [History Confirmed 04/17/22] cholecalciferol (vitamin D3) 10 mcg (400 unit) capsule (Vitamin D3) 400 unit PO DAILY 02/02/20 [History Confirmed 04/17/22] montelukast 10 mg tablet 10 mg PO QPM 02/02/20 [History Confirmed 04/17/22] letrozole 2.5 mg tablet 2.5 mg PO DAILY 90 Days #90 tab 11/29/21 [Rx Confirmed 04/17/22] Objective - Height/Weight Height/Weight: Height 5 ft 1 in Weight 66.678 kg - Vital Signs Vital Signs: 04/17/22 13:33 Temperature 97.8 F Pulse Rate [Right Brachial] 78 Respiratory Rate 16 Blood Pressure [Right Arm] 124/78 02 Sat by Pulse Oximetry 99 - Pain Right Shoulder Pain Intensity: 3 - Distress Screening Distress Screen Results: RN Distress Screening Start: 02/23/20 08:57 Freq: Status: Active Protocol: Document 04/17/20 13:53 AD (Rec: 04/17/20 13:53 AD [id number]) Distress Screening Distress Score: 0 No worry/distress Distress Screening Total 0 Physical Exam Narrative: CONSTITUTIONAL: [No apparent distress. Alert, oriented.] HEAD: [Normocephalic, atraumatic.] EYES: [EOMI. Pupils equal and reactive. Conjunctiva normal.] ENT: [External auditory canals wnl. No rhinorrhea. No pharyngeal exudates or erythema.] NECK: [Supple, no adenopathy.] LYMPH NODES: [No palpable lymph nodes.] LUNGS: [No distress. Lungs clear bilaterally. No wheezes, rales or rhonchi.] CARDIOVASCULAR: [Regular rate and rhythm. No murmurs. Symmetric palpable radial and dorsalis pedis pulses.] ABDOMEN: [Soft, non-tender, non-distended. Normal bowel sounds. EXT: no UE lymphedema.] BACK: [No midline or paraspinal tenderness.] SKIN: [Intact. No rash. No trauma.] NEUROLOGIC: [II-XII Cranial nerves grossly intact. No focal neurologic deficits.] PSYCHIATRIC: [Mood is appropriate.] - ECOG Performance Status ECOG Score: 0 Assessment and Plan (1) Carcinoma of upper-outer quadrant of left breast in female, estrogen receptor positive 59-year-old female with a history of stage I breast cancer, ER positive, MD positive, HER2 negative, status postlumpectomy and radiation. He started endocrine therapy in February 2020 initially with anastrozole, changed to letrozolein September 2020 due to right shoulder pain. The pain has gone away after stopping anastrozole. She tolerates letrozole really well without any significant complaints. She reports occasional hot flashes, but tolerable. Shedenies joint pain or muscle pain. Her last mammogram in February was benign. There is no clinical evidence of disease recurrence. She will continue letrozole for total 5 years. She will follow-up in 6 months. (2) Osteopenia Patient states that she has been taking Fosamax for years per her PCP. Her lastDEXA scan in April 2021 showed mild osteopenia in the lumbar spine, T score -1.2. She will talk with her PCP regarding whether she needs to continue the Fosamax. She will need repeat DEXA scan in April 2023. - Time with Patient Coordination of Care & Counseling Time: Greater than 50% of time spent with patient was for coordination of care (as documented) and [id number] counseling of patient and/or family. Dictated By: Hola Maldonado MD DD/ [id number] Signed By: <Electronically signed by Hola Maldonado MD> 04/17/22 1418 [facility] Work Phone: 1(756) 450-603912-08-2021 Progress note Author Cruz Ambriz [facility] October 16, 2021 2:19pm Note Date/Time October 16, 2021 2 :09pm [facility] [place] [address] Hem/Onc Follow Up Note - OP Signed Patient: Laura Cunha MR#: [id number] : 1955 Acct:[id number] Age/Sex: 66 / F Type: REG RCR Copies to: DO Michelle Astudillo MD~ Subjective Date/Time of Service: Date of Service: 10/16/2021 Time of Service: 13:57 Chief Complaint: Patient is here for a 6 month follow up, taking letrozole. No concerns voiced at this time. HPI: Laura presents in follow-up on letrozole. Her tolerance is overall good. Bone densitometry does show some changes consistent with osteoporosis. She is taking combination therapy with vitamin D and calcium. She takes weekly bisphosphonate therapy orally. We had started anastrozole for adjuvant therapy. We had stopped the anastrozole due to side effects. She did complete radiation. Laura is a 64-year-old female who presented 02/23/20 with breast cancer. She was taken to surgery 02/07/20 with the findings of a 1 cm ER positive and MD positive, HER- 2 negative invasive ductal carcinoma with tubulo-?lobular features. The tumor was grade 1 with 0 of 4 lymph nodes involved. She recovered well post surgery. She was started on anastrazole february 2020. 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 She was treated with adjuvant radiation therapy. On September 11 she was seen in follow-up with right shoulder arthralgias. The anastrozole was stopped. In follow-up April 2021 on letrozole her symptoms are gone. Her tolerance was excellent. Latest mammogram is also negative. - Summary of Therapies Summary of Therapies: Anastrozole started February 2020. This was then changed to letrozole due to intolerance to anastrozole. Subjective/ROS - Narrative: This is unchanged. [facility] - Medical History Medical History: Medical History (Last Reviewed 03/22/20 @ 14:19 by Teresa Nunn MD) Asthma Breast cancer left Endometriosis determined by laparoscopy Nasal drainage Osteoporosis - Surgical History Surgical History: Surgical History (Last Reviewed 03/22/20 @ 14:19 by Teresa Nunn MD) History of nasal cauterization hx nasal fissure - Family History Family History: Family History (Last Reviewed 03/22/20 @ 14:19 by Teresa Nunn MD) Mother Renal failure HTN (hypertension) Father Pancreatic cancer Brother Pancreatitis - Social History Smoking Status: Never smoker Substance Use Type: None Home Medications & Allergies Allergies egg Adverse Reaction (Verified 10/16/21 13:28) Diarrhea cream cheese Adverse Reaction (Uncoded 04/16/21 13:31) Gastrointestinal Upset toft's ice cream Adverse Reaction (Uncoded 04/16/21 13:31) Gastrointestinal Upset Home Medications alendronate 70 mg tablet 70 mg PO QWEEK 02/02/20 [History Confirmed 10/16/21] calcium 650 mg-vitamin D3 12.5 mcg-vitamin K 40 mcg chewable tablet (Viactiv) 1 tab PO BID 02/02/20 [History Confirmed 10/16/21] cholecalciferol (vitamin D3) 10 mcg (400 unit) capsule (Vitamin D3) 400 unit PO DAILY 02/02/20 [History Confirmed 10/16/21] montelukast 10 mg tablet 10 mg PO QPM 02/02/20 [History Confirmed 10/16/21] letrozole 2.5 mg tablet 2.5 mg PO DAILY 90 Days #30 tab 11/16/20 [Rx Confirmed 10/16/21] Objective - Height/Weight Height/Weight: Height 5 ft 1 in Weight 67.812 kg - Vital Signs Vital Signs: 10/16/21 13:30 Temperature 98 F Pulse Rate [Right Brachial] 90 Respiratory Rate 20 Blood Pressure [Right Arm] 128/82 02 Sat by Pulse Oximetry 100 - Pain Right Shoulder Pain Intensity: 3 - Distress Screening Distress Screen Results: RN Distress Screening Start: 02/23/20 08:57 Freq: Status: Active Protocol: Document 04/17/20 13:53 AD (Rec: 04/17/20 13:53 AD [id number]) Distress Screening Distress Score: 0 No worry/distress Distress Screening Total 0 Physical Exam Narrative: The patient is alert and oriented x3. Lungs audibly with good air exchange. Neurological exam is grossly intact. Psychiatric exam shows a normal affect. - ECOG Performance Status ECOG Score: 0 Assessment and Plan (1) Carcinoma of upper-outer quadrant of left breast in female, estrogen receptor positive The patient's arthralgias were from anastrozole. She was started on letrozole and has done very well with this. She is tolerating the letrozole very well. Her review of systems today is negative. She has no symptoms or signs of recurrence. I see no evidence of recurrence and she is tolerating the letrozolevery well. I will see her in 6 months. (2) Osteoporosis maintain calcium/Vit D/ bisphosphonate per plan see me in follow up discussed AI therapy and osteoporosis - Chemo Plan Chemo Plan (Dose, Rate, Freq): BREAST CANCER The patient is presenting with a T1N0 grade 1 breast cancer, ER/MD positive, HER-2 negative. I discussed with her the indications for adjuvant therapy and will recommend to her 5 years of hormonal therapy with adjuvant radiation therapy as well. I will recommend to her 5 years of an aromatase inhibitor and have in the past reviewed at length the side effects, risks, and complications of aromatase inhibitors particularly joint complaints, arthralgias and night sweats. - Time with Patient Coordination of Care & Counseling Time: Greater than 50% of time spent with patient was for coordination of care (as documented) and krxy-ol-corg counseling of patient and/or family. Dictated By: Cruz Ambriz MD DD/ [id number] Signed By: <Electronically signed by MD Cruz Ambriz> 10/16/21 1418 [facility] Work Phone: [phone] 144-803910-28-2021 Progress note Author Teresa Nunn [facility] September 05, 2021 3:01pm Note Date/Time September 05, 2021 2 :52pm [facility] [place] [address] Rad Onc Follow Up Note - OP Signed Patient: Laura Cunha MR#: [id number] : 1955 Acct:[id number] Age/Sex: 66 / F Type: REG RCR Copies to: DO Cruz Astudillo MD Marcia E Braun, MD~ Subjective - Service Date/Time Date: 09/05/21 Time: 14:52 - Diagnosis Invasive lobular carcinoma with tubular lobular features of the upper outer quadrant of the left breast, stage pT1b pN0 M0, ER positive, MD positive and HER-2/jyothi negative - Chief Complaint I have mild discomfort in the left breast and I am on letrozole - History of Present Illness 66-year-old female who is a non-smoker and drinks alcohol occasionallyis Ab0 and she had her menopause at age 55. She did not take any hormone replacement therapy. Patient has undergone routine screening mammography of many years and has been completely asymptomatic. She had her routine screening mammography in December this year and that showed abnormality in the upper outerquadrant of the left breast. Patient's biopsy from this area confirmed the diagnosis of duct carcinoma, ER positive, MD positive HER-2 negative. On 02/07/2020, she was taken to the operating room by Dr. Mcpherson and underwent lumpectomy and sentinel node biopsy from the left axillary. Patient's final pathology report confirmed a 1 cm invasive ductal carcinoma, grade 1 with tubulo-lobular features,ER positive, MD positive HER-2 negative and the margins of resection were negative. 0/4 nodes showed evidence of metastatic disease andher pathological staging was pT1b pN0 M0. She was not a candidate for systemic chemotherapy and she was started on anastrozole by Dr. Ambriz. Her primary external radiation to the left breast was delayed for about 6 weeks due to COVID-19 accommodation and it was subsequently completed in April 2020. She returns today for her scheduled radiotherapy follow-up and her only complaint ismild, intermittent discomfort in the left breast area. I reassured her and toldher might take additional time for these post-surgical symptoms to resolve. She continues to be on letrozole under Dr. Ambriz's care and she is tolerating it fairly well. She follows up regularly with Dr. Mcpherson at every 4-month intervals and her last mammogram in February 2021 was reported normal. She also had a bone scan in April 2021 which was reported negative.Patient does have asthma and some sinus issues but she has no complaints of headaches, nausea, neck lumps or palpable breast lumps, arm swelling, cough, hemoptysis, backache, abdominal discomfort, urinary or bowel problems, vaginal discharge or bleeding, leg swelling, motor or sensory changes. She remains active active and her appetite and weight are stable. No complaints of fever, chills or night sweats. I've closely reviewed the patient's oncologic, medical, surgical, social, and family history. Changes noted above. I also reviewed the patient's medicationsvia reconciliation, as per the nursing record. - Review of Systems ROS: As per HPI. Objective Height 5 ft 1 in Weight 66.7 kg Temp 98.5 F 09/05/21 14:06 Pulse 90 09/05/21 14:06 Resp 18 09/05/21 14:06 BP 155/80 H 09/05/21 14:06 Pulse Ox 99 09/05/21 14:06 Pain: 0/10 Distress Screen Results: RN Distress Screening Start: 02/23/20 08:57 Freq: Status: Active Protocol: Document 04/17/20 13:53 AD (Rec: 04/17/20 13:53 AD [id number]) Distress Screening Distress Score: 0 No worry/distress Distress Screening Total 0 Karnofsky Performance Scale: 90%: Can perform normal activity, minor signs of disease Physical Exam: Physical examination today shows an alert, oriented, pleasant female who does not appear to be in any acute distress. HEENT examination revealed no cranial neuropathy. No palpable cervical or supraclavicular adenopathy. Local exam of the left breast shows excellent cosmetic result. Surgical incision in the upper outer quadrant is well healed and underneath the scar, she has mild fibrosis secondary to her surgery and radiation therapy treatments. She has no discrete palpable mass in the left breast or axilla. She has no left upper extremity lymphedema. Right breast and axilla are also without any masses. Herlungs are clear to auscultation. Cardiac examination is unremarkable. No spinalor paraspinal tenderness is elicited. Her abdomen is soft, nontender and there is no palpable mass or organomegaly. Pelvic and rectal examination were not done today. She has no arm or leg edema. She remains neurologically stable including her motor, sensory and cerebellar functions. Results Impression: Invasive lobular carcinoma with tubular lobular features of the upper outer quadrant of the left breast, stage pT1b pN0 M0, ER positive, MD positive and HER-2/jyothi negative Assessment & Plan (1) Carcinoma of upper-outer quadrant of left breast in female, estrogen receptor positive Plan: 66-year-old female with invasive ductal carcinoma of the left breast in the upper outer quadrant, grade 1 with tubulo-lobular features had lumpectomyand sentinel biopsy followed by radiation therapy treatments to the left breast in April 2020. Her pathological staging was pT1b pN0 M0, ER positive, MD positive HER-2 negative and she is currently on letrozole under care of Dr. Ambriz. He returned today for her scheduled radiation collagen follow-up and is doing remarkably well. There is no clinical evidence of any residual or recurrent disease in her left breast and she has minimal residual radiation related changes. She follows up regularly with Dr. Mcpherson and her last mammograms in February 2021 were reported negative. At this point, I shall plan todischarge her from our clinic and see her in the future only on an as-needed basis. Total Time Spent with Patient: Less than 30 minutes I spent 20 minutes mmwn-md-ncal time with this patient and more than 50% of timeallotted to patient education, answering questions, and coordinating care. N.B: Voice-recognition software was used in the creation of this note. Efforts were made to detect and correct typographical and/or grammatical errors;please excuse them should you find any. Dictated By: Teresa Nunn MD DD/ 1451 Signed By: <Electronically signed by Teresa Nunn MD> 09/05/21 1501 [facility] Work Phone: [phone]) 750-173006-08-2021 Progress note Author Cruz Ambriz [facility] April 16, 2021 2:33pm Note Date/Time April 16, 2021 2:29p [facility] [place] [address] Hem/Onc Follow Up Note - OP Signed Patient: Laura Cunha MR#: [id number] : 1955 Acct:[id number] Age/Sex: 65 / F Type: REG RCR Copies to: DO Michelle Astudillo MD~ Subjective Date/Time of Service: Date of Service: 04/16/2021 Time of Service: 14:28 Chief Complaint: Patient is here for 6 month follow up visit for breast cancer. She is doing well on Letrozole. No new concerns HPI: Laura presents in follow-up on letrozole. She was doing much better overall withthis. Her shoulder pain has resolved. We had stopped the anastrozole due to side effects. She did complete radiation. Laura is a 64-year-old female who presented 02/23/20 with breast cancer. She was taken to surgery 02/07/20 with the findings of a 1 cm ER positive and MD positive, HER- 2 negative invasive ductal carcinoma with tubulo-?lobular features. The tumor was grade 1 with 0 of 4 lymph nodes involved. She recovered well post surgery. She was started on anastrazole february 2020. 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 She was treated with adjuvant radiation therapy. On September 11 she was seen in follow-up with right shoulder arthralgias. The anastrozole was stopped. In follow-up April 2021 on letrozole her symptoms are gone. Her tolerance was excellent. Latest mammogram is also negative. [facility] - Medical History Medical History: Medical History (Last Reviewed 03/22/20 @ 14:19 by Teresa Nunn MD) Asthma Breast cancer left Endometriosis determined by laparoscopy Nasal drainage Osteoporosis - Surgical History Surgical History: Surgical History (Last Reviewed 03/22/20 @ 14:19 by Teresa Nunn MD) History of nasal cauterization hx nasal fissure - Family History Family History: Family History (Last Reviewed 03/22/20 @ 14:19 by Teresa Nunn MD) Mother Renal failure HTN (hypertension) Father Pancreatic cancer Brother Pancreatitis - Social History Smoking Status: Never smoker Substance Use Type: None Home Medications & Allergies Allergies egg Adverse Reaction (Verified 04/16/21 13:31) Diarrhea cream cheese Adverse Reaction (Uncoded 04/16/21 13:31) Gastrointestinal Upset toft's ice cream Adverse Reaction (Uncoded 04/16/21 13:31) Gastrointestinal Upset Home Medications alendronate 70 mg PO QWEEK 02/02/20 [History Confirmed 04/16/21] calcium-vitamin D3-vitamin K [Viactiv] 1 tab PO BID 02/02/20 [History Confirmed 04/16/21] cholecalciferol (vitamin D3) [Vitamin D3] 400 unit PO DAILY 02/02/20 [History Confirmed 04/16/21] montelukast 10 mg PO QPM 02/02/20 [History Confirmed 04/16/21] letrozole 2.5 mg PO DAILY 90 Days #30 tab 11/16/20 [Rx Confirmed 04/16/21] Objective - Height/Weight Height/Weight: Height 5 ft 1 in Weight 65.771 kg - Vital Signs Vital Signs: 04/16/21 13:32 Temperature 97.9 F Pulse Rate [Right Brachial] 96 H Respiratory Rate 20 Blood Pressure [Right Arm] 122/80 02 Sat by Pulse Oximetry 98 - Pain Right Shoulder Pain Intensity: 3 - Emotional Needs Assessment Emotional Needs Assessment: Emotional Needs Identified? No Physical Exam Narrative: The patient is alert and oriented x3. Lungs audibly with good air exchange. Neurological exam is grossly intact. Psychiatric exam shows a normal affect. Assessment and Plan (1) Carcinoma of upper-outer quadrant of left breast in female, estrogen receptor positive The patient's arthralgias stopped on anastrozole. She is tolerating the letrozole very very well. Her review of systems today is negative. She has no symptoms or signs of recurrence. She is requesting a DEXA scan which we will do. I see no evidence of recurrence and she is tolerating the letrozole very well. I will see her in 6 months. - Time with Patient Coordination of Care & Counseling Time: Greater than 50% of time spent with patient was for coordination of care (as documented) and zjiy-al-dijo counseling of patient and/or family. Dictated By: Cruz Ambriz MD DD/ 1428 Signed By: <Electronically signed by MD Cruz Ambriz> 04/16/21 1438 [facility] Work Phone: 1(104) 821-838301-27-2021 Progress note Author Teresa Nunn [facility] December 05, 2020 7:12pm Note Date/Time December 05, 2020 7 :02pm [facility] [place] [address] Rad Onc Follow Up Note - OP Signed Patient: Laura Cunha MR#: [id number] : 1955 Acct:[id number] Age/Sex: 65 / F Type: REG RCR Copies to: MD Jeremy Damian DO Marcia E Braun, MD~ Subjective - Service Date/Time Date: 12/05/20 Time: 14:05 - Diagnosis Invasive lobular carcinoma with tubular lobular features of the upper outer quadrant of the left breast, stage pT1b pN0 M0, ER positive, MD positive and HER-2/jyothi negative - Chief Complaint I have mild discomfort in the left breast and I am on anastrozole - History of Present Illness 65-year-old female who is a non-smoker and drinks alcohol occasionallyis Ab0 and she had her menopause at age 55. She did not take any hormone replacement therapy. Patient has undergone routine screening mammography of many years and has been completely asymptomatic. She had her routine screening mammography in December this year and that showed abnormality in the upper outerquadrant of the left breast. Patient's biopsy from this area confirmed the diagnosis of duct carcinoma, ER positive, MD positive HER-2 negative. On 02/07/2020, she was taken to the operating room by Dr. Mcpherson and underwent lumpectomy and sentinel node biopsy from the left axillary. Patient's final pathology report confirmed a 1 cm invasive ductal carcinoma, grade 1 with tubulo-lobular features,ER positive, MD positive HER-2 negative and the margins of resection were negative. 0/4 nodes showed evidence of metastatic disease andher pathological staging was pT1b pN0 M0. She was not a candidate for systemic chemotherapy and she was started on anastrozole by Dr. Ambriz. Her primary external radiation to the left breast was delayed for about 6 weeks due to COVID-19 accommodation and there is subsequently completed in April 2020. She returns today for her scheduled radiotherapy follow-up and her only complaint ismild, intermittent discomfort in the left breast area. I reassured her and toldher that this may take another several months before it subsides completely. She continues to be on anastrozole 1 mg a day and she tolerated fairly well. She follows up regularly with Dr. Marsh and Dr. Mcpherson at every 3 to 4-month intervals and her next mammogram is scheduled for December 2020 prior to her visit with Dr. Mcpherson. Patient does have asthma and some sinus issues but shehas no complaints of headaches, nausea, neck lumps or palpable breast lumps, armswelling, cough, hemoptysis, backache, abdominal discomfort, urinary or bowel problems, vaginal discharge or bleeding, leg swelling, motor or sensory changes. She remains active active and her appetite and weight are stable.No complaints of fever, chills or night sweats. I've closely reviewed the patient's oncologic, medical, surgical, social, and family history. Changes noted above. I also reviewed the patient's medicationsvia reconciliation, as per the nursing record. - Review of Systems ROS: As per HPI. Objective Height 5 ft 1 in Weight 64.41 kg Temp 97.8 F 12/05/20 13:41 Pulse 99 H 12/05/20 13:41 Resp 20 12/05/20 13:41 BP 126/84 12/05/20 13:41 Pulse Ox 99 12/05/20 13:41 Pain: 0/10 Emotional Needs Assessment: Emotional Needs Identified? No Distress Screening Total 0 Support System Spouse Karnofsky Performance Scale: 90%: Can perform normal activity, minor signs of disease Physical Exam: Physical examination today shows an alert, oriented, pleasant female who does not appear to be in any acute distress. HEENT examination revealed no cranial neuropathy. No palpable cervical or supraclavicular adenopathy. Local exam of the left breast shows excellent cosmetic result. Surgical incision in the upper outer quadrant is well healed and underneath the scar, she has mild fibrosis secondary to her surgery and radiation therapy treatments. She has no discrete palpable mass in the left breast or axilla. She has no left upper extremity lymphedema. Right breast and axilla are also without any masses. Herlungs are clear to auscultation. Cardiac examination is unremarkable. No spinalor paraspinal tenderness is elicited. Her abdomen is soft, nontender and there is no palpable mass or organomegaly. Pelvic and rectal examination were not done today. She has no arm or leg edema. She remains neurologically stable including her motor, sensory and cerebellar functions. Results Impression: Invasive lobular carcinoma with tubular lobular features of the upper outer quadrant of the left breast, stage pT1b pN0 M0, ER positive, MD positive and HER-2/jyothi negative Assessment & Plan (1) Carcinoma of upper-outer quadrant of left breast in female, estrogen receptor positive Plan: 65-year-old female with invasive ductal carcinoma of the left breast in the upper outer quadrant, grade 1 with tubulo-lobular features had lumpectomyand sentinel biopsy followed by radiation therapy treatments to the left breast in April 2020. Her pathological staging was pT1b pN0 M0, ER positive, MD positive HER-2 negative and she is currently on anastrozole under care of Dr. Marsh. She follows up regularly with Dr. Marsh and Dr. Mcpherson and has a planned follow-up mammograms next month. She has no evidence of residual or recurrent disease on today's clinical examination and I plan to see her back in radiation oncology clinic in 9 months or earlier if needed. Total Time Spent with Patient: Less than 30 minutes I spent 20 minutes with the patient and more than 50% of time allotted to patient education, answering questions, and coordinating care. N.B: Voice-recognition software was used in the creation of this note. Efforts were made to detect and correct typographical and/or grammatical errors;please excuse them should you find any. Dictated By: Teresa Nunn MD DD/ 00 Signed By: <Electronically signed by Teresa Nunn MD> 12/05/201911 [facility] Work Phone: [phone]) 579-635412-08-2020 Progress note Author Cruz Ambriz [facility] October 16, 2020 3:09pm Note Date/Time October 16, 2020 3 :06pm [facility] [place] [id number] Hem/Onc Follow Up Note - OP Signed Patient: Laura Cunha MR#: [id number] : 1955 Acct:[id number] Age/Sex: 65 / F Type: REG RCR Copies to: DO Michelle Astudillo MD TIMMIS, HILARY H MD~ Subjective Date/Time of Service: Date of Service: 10/16/2020 Time of Service: 15:04 Chief Complaint: Patient is here today for 1 month for breast cancer. She has been off her Anastrozole for a month to see if her right shoulder pain would improve with out taking medicaiton and patient states pain has improved just sore HPI: Laura presents in follow-up. I had stopped her anastrozole because of right shoulder pain. This is much better. Her range of motion is much improved and pain is almost gone. We will start her on letrozole today. Patient also has some upper respiratory complaints. She did have cauterization in the left nose by Dr. Little. Recently she has had persisting sinus congestion and fluid in her ears. She has taken 2 Z-Paks. She is requesting another antibiotic and is symptomatic as above. She is not allergic to penicillin. The arthralgias improved when she was off anastrozole for radiation. She has finished radiation therapy. Laura is a 64-year-old female who presented 02/23/20 with breast cancer. She was taken to surgery 02/07/20 with the findings of a 1 cm ER positive and MD positive, HER- 2 negative invasive ductal carcinoma with tubulo-?lobular features. The tumor was grade 1 with 0 of 4 lymph nodes involved. She recovered well post surgery. She was started on anastrazole february 2020. 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 She was treated with adjuvant radiation therapy. On September 11 she was seen in follow-up with right shoulder arthralgias. The anastrozole was stopped. [facility] - Medical History Medical History: Medical History (Last Reviewed 03/22/20 @ 14:19 by Teresa Nunn MD) Asthma Breast cancer left Endometriosis determined by laparoscopy Nasal drainage Osteoporosis - Surgical History Surgical History: Surgical History (Last Reviewed 03/22/20 @ 14:19 by Teresa Nunn MD) History of nasal cauterization hx nasal fissure - Family History Family History: Family History (Last Reviewed 03/22/20 @ 14:19 by Treesa Nunn MD) Mother Renal failure HTN (hypertension) Father Pancreatic cancer Brother Pancreatitis - Social History Smoking Status: Never smoker Substance Use Type: None Home Medications & Allergies Allergies egg Adverse Reaction (Verified 10/16/20 14:47) Diarrhea cream cheese Adverse Reaction (Uncoded 10/16/20 14:47) Gastrointestinal Upset toft's ice cream Adverse Reaction (Uncoded 10/16/20 14:47) Gastrointestinal Upset Home Medications alendronate 70 mg PO QWEEK 02/02/20 [History Confirmed 10/16/20] calcium-vitamin D3-vitamin K [Viactiv] 1 tab PO BID 02/02/20 [History Confirmed 10/16/20] cholecalciferol (vitamin D3) [Vitamin D3] 400 unit PO DAILY 02/02/20 [History Confirmed 10/16/20] montelukast 10 mg PO QPM 02/02/20 [History Confirmed 10/16/20] amoxicillin-pot clavulanate [Augmentin] 1 tab PO TID 10 Days #30 tab 10/16/20 [Rx] letrozole 2.5 mg PO DAILY 30 Days #30 tab 10/16/20 [Rx] Objective - Height/Weight Height/Weight: Height 5 ft 1 in Weight 64.41 kg - Vital Signs Vital Signs: 10/16/20 14:48 Temperature 97.2 F L Pulse Rate [Right Brachial] 99 H Respiratory Rate 20 Blood Pressure [Right Arm] 124/80 02 Sat by Pulse Oximetry 99 - Pain Right Shoulder Pain Intensity: 3 - Emotional Needs Assessment Emotional Needs Assessment: Emotional Needs Identified? No Distress Screening Total 0 Physical Exam Narrative: The patient is alert and oriented x3. Because of Covid, I did not do a exam of her face or ears. - ECOG Performance Status ECOG Score: 0 Assessment and Plan (1) Carcinoma of upper-outer quadrant of left breast in female, estrogen receptor positive The patient's arthralgias have stopped on anastrozole. We will try her on letrozole. She will call me in a month or so to let us know how she is doing. If the pain or complaints rebound we will have her stop anastrozole. We talked about getting a DEXA scan but she wants to wait for 6 months. I will see her infollow-up. (2) Sinus congestion Patient has crackling in her ear from fluid and is complaining of left-sided sinus pressure. She has finished 2 courses of azithromycin. I will prescribe Augmentin 500 mg 3 times daily for 10 days. The patient will follow up with herfamily doctor Dr. Joshi. - Time with Patient Coordination of Care & Counseling Time: Greater than 50% of time spent with patient was for coordination of care (as documented) and qzfl-qa-ekob counseling of patient and/or family. Dictated By: Cruz Ambriz MD DD/ 1504 Signed By: <Electronically signed by MD Cruz Ambriz> 10/16/20 1509 [facility] Work Phone: [phone]) 496-713611-03-2020 Progress note Author Cruz Ambriz [facility] September 11, 2020 9:59am Note Date/Time September 11, 2020 9 :57am [facility] [place] [id number] Hem/Onc Follow Up Note - OP Signed Patient: Laura Cunha MR#: [id number] : 1955 Acct:[id number] Age/Sex: 65 / F Type: REG RCR Copies to: DO Michelle Astudillo MD~ Subjective Date/Time of Service: Date of Service: 09/11/2020 Time of Service: 09:55 Chief Complaint: Patient is here for six month follow up history of breast cancer on Anastrozole. Patient complains of right shoulder joint pain. Patient is questioning if she needs a bone density. HPI: Laura presents in follow-up. She has persisting right shoulder pain. This appears to be connected to the anastrozole. The arthralgias improved when she was off anastrozole for radiation. I will stop her anastrozole today and see her in 1 month. If her arthralgias improve I will start an alternative such as letrozole. I will see her in 1 month. She has finished radiation therapy. Laura is a 64-year-old female who presented 02/23/20 with breast cancer. She was taken to surgery 02/07/20 with the findings of a 1 cm ER positive and MD positive, HER- 2 negative invasive ductal carcinoma with tubulo-?lobular features. The tumor was grade 1 with 0 of 4 lymph nodes involved. She recovered well post surgery. She was started on anastrazole february 2020. 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 She was treated with adjuvant radiation therapy. On September 11 she was seen in follow-up with right shoulder arthralgias. The anastrozole was stopped. [facility] - Medical History Medical History: Medical History (Last Reviewed 03/22/20 @ 14:19 by Teresa Nunn MD) Asthma Breast cancer left Endometriosis determined by laparoscopy Nasal drainage Osteoporosis - Surgical History Surgical History: Surgical History (Last Reviewed 03/22/20 @ 14:19 by Teresa Nunn MD) History of nasal cauterization hx nasal fissure - Family History Family History: Family History (Last Reviewed 03/22/20 @ 14:19 by Teresa Nunn MD) Mother Renal failure HTN (hypertension) Father Pancreatic cancer Brother Pancreatitis - Social History Smoking Status: Never smoker Substance Use Type: None Home Medications & Allergies Allergies egg Adverse Reaction (Verified 02/02/20 09:29) Diarrhea cream cheese Adverse Reaction (Uncoded 02/02/20 09:29) Gastrointestinal Upset toft's ice cream Adverse Reaction (Uncoded 02/02/20 09:29) Gastrointestinal Upset Home Medications alendronate 70 mg PO QWEEK 02/02/20 [History Confirmed 09/11/20] calcium-vitamin D3-vitamin K [Viactiv] 1 tab PO BID 02/02/20 [History Confirmed 09/11/20] cholecalciferol (vitamin D3) [Vitamin D3] 400 unit PO DAILY 02/02/20 [History Confirmed 09/11/20] montelukast 10 mg PO QPM 02/02/20 [History Confirmed 09/11/20] anastrozole 1 mg PO DAILY 90 Days #90 tab 02/23/20 [Rx Confirmed 09/11/20] Objective - Height/Weight Height/Weight: Height 5 ft 1.61 in Weight 63.957 kg - Vital Signs Vital Signs: 09/11/20 09:35 Temperature 97.3 F L Pulse Rate [Right Brachial] 77 Respiratory Rate 20 Blood Pressure [Right Arm] 128/72 02 Sat by Pulse Oximetry 98 - Pain Right Shoulder Pain Intensity: 5 - Emotional Needs Assessment Emotional Needs Assessment: Emotional Needs Identified? No Distress Screening Total 0 Physical Exam Narrative: Patient is in no acute distress. She appears overall healthy. Head is atraumatic normocephalic Eyes show no evidence of scleral icterus. Extraocular muscles are intact Cardiac exam is negative Lungs audibly with good air exchange Neurologic exam shows no evidence of sensory, motor or proprioceptive defects. Endocrinologic exam is negative Dermatologic exam is negative Psychiatric exam is negative Assessment and Plan (1) Carcinoma of upper-outer quadrant of left breast in female, estrogen receptor positive Stop the anastrozole. I will see her in 4 weeks. If her joint complaints improve I will recommend letrozole. - Time with Patient Coordination of Care & Counseling Time: Greater than 50% of time spent with patient was for coordination of care (as documented) and [id number] counseling of patient and/or family. Dictated By: Cruz Ambriz MD DD/ [id number] Signed By: <Electronically signed by MD Cruz Ambriz> 09/11/20 0959 [facility] Work Phone: [phone] Progress note Author Teresa Nunn [facility] May 30, 2020 2:27pm Note Date/Time May 30, 2020 2:17 pm [facility] [place] [id number] Rad Onc Follow Up Note - OP Signed Patient: Laura Cunha MR#: [id number] : 1955 Acct:[id number] Age/Sex: 64 / F Type: REG RCR Copies to: MD Jermey Cordova DO Marcia E Braun, MD~ Subjective - Service Date/Time Date: 05/30/20 Time: 14:17 - Diagnosis Invasive lobular carcinoma with tubular lobular features of the upper outer quadrant of the left breast, stage pT1b pN0 M0, ER positive, MD positive and HER-2/jyothi negative - Chief Complaint My radiation skin reaction is healed and I have no complaints - History of Present Illness 64-year-old female who is a non-smoker and drinks alcohol occasionallyis Ab0 and she had her menopause at age 55. She did not take any hormone replacement therapy. Patient has undergone routine screening mammography of many years and has been completely asymptomatic. She had her routine screening mammography in December this year and that showed abnormality in the upper outerquadrant of the left breast. Patient's biopsy from this area confirmed the diagnosis of duct carcinoma, ER positive, MD positive HER-2 negative. On 02/07/2020, she was taken to the operating room by Dr. Mcpherson and underwent lumpectomy and sentinel node biopsy from the left axillary. Patient's final pathology report confirmed a 1 cm invasive ductal carcinoma, grade 1 with tubulo-lobular features,ER positive, MD positive HER-2 negative and the margins of resection were negative. 0/4 nodes showed evidence of metastatic disease andher pathological staging was pT1b pN0 M0. She was not a candidate for systemic chemotherapy and she was started on anastrozole about [address] Ambriz. Her primary external radiation to the left breast was delayed for about 6 weeks due to COVID-19 accommodation and it was delivered during the month of April 2020 for 4 weeks. She returns today for her first post radiotherapy follow- up and her skin reaction is completely healed. Patient was restarted on anastrozole since her radiation treatments are completed. Patient does have asthma and some sinus issues but she has no complaints of headaches, nausea, neck lumps or palpable breast lumps, arm swelling, cough, hemoptysis, backache, abdominal discomfort, urinary or bowel problems, vestibule discharge, leg swelling, motor or sensory changes. She is active; her appetite is good andweight is stable. No complaints of fever, chills or night sweats. I've closely reviewed the patient's oncologic, medical, surgical, social, and family history. Changes noted above. I also reviewed the patient's medicationsvia reconciliation, as per the nursing record. - Review of Systems ROS: As per HPI. Objective Height 5 ft 1.61 in Weight 64.3 kg Temp 99.2 F H 05/30/20 13:37 Pulse 80 05/30/20 13:37 Resp 20 05/30/20 13:37 BP 140/84 05/30/20 13:37 Pulse Ox 97 04/24/20 14:12 Pain: 0/10 Emotional Needs Assessment: Emotional Needs Identified? No Karnofsky Performance Scale: 100%: Normal, no complaints Physical Exam: Physical examination today shows an alert, oriented, pleasant female who does not appear to be in any acute distress. HEENT examination revealed no cranial neuropathy. No palpable cervical or supraclavicular adenopathy. Local exam of the left breast shows excellent cosmetic result. Surgical incision in the upper outer quadrant is well healed and there is no significant residual skin reaction in the area of recent radiation. She has no discrete palpable massin the left breast or axilla. Right breast and axilla are also without any masses. Her lungs are clear to auscultation. Cardiac examination is unremarkable. No spinal or paraspinal tenderness is elicited. Her abdomen is soft, nontender and there is no palpable mass or organomegaly. Pelvic and rectal examination not done. She has no arm or leg edema. She remains neurologically stable including her motor, sensory and cerebellar functions. Results Impression: Invasive lobular carcinoma with tubular lobular features of the upper outer quadrant of the left breast, stage pT1b pN0 M0, ER positive, MD positive and HER-2/jyothi negative Assessment & Plan (1) Carcinoma of upper-outer quadrant of left breast in female, estrogen receptor positive Plan: 64-year-old female with invasive ductal carcinoma of the left breast in the upper outer quadrant, grade 1 with tubulo-lobular features had lumpectomyand sentinel biopsy and all margins of resection were negative. Her pathological staging was pT1b pN0 M0, ER positive, MD positive HER-2 negative and she received 4 weeks of external ration therapy to the left breast. She is currently on anastrozole 1 mg a day and continues to do well clinically. There is minimal residual radiation related morbidity.patient has an appointment see Dr. Brown and Dr. Gonzalez in next 3 to 4 months and I shall plan to see her backagain in 6 months for her next scheduled radiation oncology follow-up. Total Time Spent with Patient: Less than 30 minutes More than 50% of time allotted to patient education, answering questions, and coordinating care. N.B: Voice-recognition software was used in the creation of this note. Efforts were made to detect and correct typographical and/or grammatical errors;please excuse them should you find any. Dictated By: Teresa Nunn MD DD/ 16 Signed By: <Electronically signed by Teresa Nunn MD> 05/30/201426 [facility] Work Phone: [phone] Consult note Author Teresa Nunn [facility] March 22, 2020 2:32pm Note Date/Time March 22, 2020 1:33p m [facility] [place] [address] Rad Onc Consult Note - OP Signed Patient: Laura Cunha MR#: [id number] : 1955 Acct:[id number] Age/Sex: 64 / F Type: REG RCR Copies to: DO Cruz Astudillo MD Marcia E Braun, MD~ HPI - Service Date/Time Date: 03/22/20 Time: 11:30 Diagnosis: Invasive lobular carcinoma with tubular lobular features of the upper outer cordof the left breast, stage pT1b pN0 M0, ER positive, MD positive and HER-2/jyothi negative Chief Complaint: I am here for my breast cancer treatments with radiation HPI: 64-year-old female who is a non-smoker and drinks alcohol occasionallyis Ab0 and she had her menopause at age 55. She did not take any hormone replacement therapy. Patient has undergone routine screening mammography of many years and has been completely asymptomatic. She had her routine screening mammography in December this year and that showed abnormality in the upper outerquadrant of the left breast. Patient's biopsy from this area confirmed the diagnosis of duct carcinoma, ER positive, MD positive HER-2 negative. On 02/07/2020, she was taken to the operating room by Dr. Mcpherson and underwent lumpectomy and sentinel node biopsy from the left axillary. Patient's final pathology report confirmed a 1 cm invasive ductal carcinoma, grade 1 with tubulo-lobular features,ER positive, MD positive HER-2 negative and the margins of resection section were negative. 0/4 nodes showed evidence of metastatic disease and her pathological staging was pT1b pN0 M0. She is not a candidate for systemic chemotherapy and she was started on anastrozole about [address] Ambriz. Her primary external radiation to the left breast was delayed for about 6 weeks due to COVID-19 accommodation and she returns today for radiation oncology evaluation by me at the request of Dr. Ambriz. Patient does have asthma and some sinus issues. She has no complaints of headaches, nausea, neck lumps or palpable breast lumps, arm swelling, cough, hemoptysis, backache, abdominal discomfort, urinary or bowel problems, vestibule discharge, leg swelling, motor or sensory changes. She is active, her appetite is good and weight is stable. No complaints of fever, chills or night sweats. [facility] - Medical History Medical History: Medical History (Last Reviewed 03/22/20 @ 14:19 by Teresa Nunn MD) Asthma Breast cancer left Endometriosis determined by laparoscopy Nasal drainage Osteoporosis - Surgical History Surgical History: Surgical History (Last Reviewed 03/22/20 @ 14:19 by Teresa Nunn MD) History of nasal cauterization hx nasal fissure - Family History Family History: Family History (Last Reviewed 03/22/20 @ 14:19 by Teresa Nunn MD) Mother Renal failure HTN (hypertension) Father Pancreatic cancer Brother Pancreatitis - Social History Smoking Status: Never smoker Substance Use Type: None Home Medications & Allergies Allergies egg Adverse Reaction (Verified 02/02/20 09:29) Diarrhea cream cheese Adverse Reaction (Uncoded 02/02/20 09:29) Gastrointestinal Upset toft's ice cream Adverse Reaction (Uncoded 02/02/20 09:29) Gastrointestinal Upset Home Medications alendronate 70 mg PO QWEEK 02/02/20 [History Confirmed 02/23/20] calcium-vitamin D3-vitamin K [Viactiv] 1 tab PO BID 02/02/20 [History Confirmed 02/23/20] cholecalciferol (vitamin D3) [Vitamin D3] 400 unit PO DAILY 02/02/20 [History Confirmed 02/23/20] montelukast 10 mg PO QPM 02/02/20 [History Confirmed 02/23/20] hydrocodone-acetaminophen [Oxford] 1 - 2 tab PO Q4-6H PRN 4 Days #20 tab 02/07/20 [Rx Confirmed 02/23/20] ibuprofen 600 mg PO Q4-6H PRN 10 Days #20 tab 02/07/20 [Rx Confirmed 02/23/20] anastrozole 1 mg PO DAILY 90 Days #90 tab 02/23/20 [Rx] Subjective ROS: I reviewed the 12-point Review of Systems with the patient as per our standard questionnaire. Objective Height 5 ft 1.61 in Weight 65.045 kg Temp 98.7 F 03/22/20 10:26 Pulse 106 H 03/22/20 10:26 Resp 20 03/22/20 10:26 BP 151/89 H 03/22/20 10:26 Pulse Ox 98 03/22/20 10:26 Pain: 0/10 Emotional Needs Assessment: Emotional Needs Identified? Yes Distress Screening Total 0 Support System Spouse Karnofsky Performance Scale: 100%: Normal, no complaints Physical Exam: Physical examination today shows an alert, oriented, pleasant female who does not appear to be in any acute distress. HEENT examination revealed no cranial neuropathy. No palpable cervical or supraclavicular adenopathy. Local exam of the left breast shows excellent cosmetic result. Surgical incision in the upper outer quadrant is well healed and has some underlying post-surgical induration as expected. She has no discrete palpable mass in the left breast or axilla. Right breast and axilla are also without any masses. Her lungs are clear to auscultation. Cardiac examination is unremarkable. No spinal or paraspinal tenderness is elicited. Her abdomen is soft, nontender and there is no palpable mass or organomegaly. Pelvic and rectal examination not done. She has no arm or leg edema. She remains neurologically stable including her motor, sensory and cerebellar functions. Results Impression: Invasive lobular carcinoma with tubular lobular features of the upper outer cord of the left breast, stage pT1b pN0 M0, ER positive, MD positive and HER-2/jyothi negative Assessment & Plan (1) Carcinoma of upper-outer quadrant of left breast in female, estrogen receptor positive Plan: 64-year-old female with invasive ductal carcinoma of the left breast in the upper outer quadrant, grade 1 with tubulo-lobular features had lumpectomy and sentinel biopsy and all margins of resection were negative. Her pathological staging is pT1b pN0 M0, ER positive, MD positive HER-2 negative and patient is currently on anastrozole. She is well-healed at this point and my recommendation is to initiate her primary therapy treatments to the left breast for abbreviated course of 3 weeks as per the [facility] protocol. No boost will be planned to the surgical bed area as it is a low-grade small lesion. Pros and cons of each therapy were discussed with her in detail and informed consent was signed today. Her CT simulation will be scheduled within next few days with plans to initiate her therapy soon thereafter. Total Time Spent with Patient: Greater than 30 minutes More than 50% of time allotted to patient education, answering questions, and coordinating care. N.B: Voice-recognition software was used in the creation of this note. Efforts were made to detect and correct typographical and/or grammatical errors; please excuse them should you find any. Dictated By: Teresa Nunn MD DD/ 1331 Signed By: <Electronically signed by Teresa Nunn MD> 03/22/20 1433 [facility] Work Phone: [phone] Progress note Author Cruz Ambriz [facility] March 22, 2020 11:07am Note Date/Time March 22, 2020 11:03 am [facility] [place] [address] Hem/Onc Follow Up Note - OP Signed Patient: Laura Cunha MR#: [id number] : 1955 Acct:[id number] Age/Sex: 64 / F Type: REG RCR Copies to: DO Michelle Astudillo MD~ Subjective Date/Time of Service: Date of Service: 03/22/2020 Time of Service: 11:01 Chief Complaint: seeing Dr Ambriz to discuss the Anastrozole- side effects thatshe notices- hair loss and joint pain HPI: Laura presents in follow-up. She started her anastrozole and so far has tolerated it somewhat well. She may be having some slight hair loss. She does havesome right shoulder, wrist and hand joint complaints that according to her may be chronic. I did warn her that some arthralgias and joint complaints from aromatase inhibitors can come on and progressed slowly such that many women think that it is just related to age-related changes. She will be getting radiation therapy and I have instructed her to stop the anastrozole while she prakash XRT. She will need anastrozole for 5 years. I will see her in 6 months of follow-up. Laura is a 64-year-old female who presented 02/23/20 with breast cancer. She was taken to surgery 02/07/20 with the findings of a 1 cm ER positive and MD positive, HER- 2 negative invasive ductal carcinoma with tubulo-?lobular features. The tumor was grade 1 with 0 of 4 lymph nodes involved. She recovered well post surgery. She was started on anastrazole february 2020. 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 [facility] - Medical History Medical History: Medical History (Last Reviewed 02/23/20 @ 09:07 by Lilia Tejeda RN) Asthma Breast cancer left Endometriosis determined by laparoscopy Nasal drainage Osteoporosis - Surgical History Surgical History: Surgical History (Last Reviewed 02/23/20 @ 09:07 by Lilia Tejeda RN) History of nasal cauterization hx nasal fissure - Family History Family History: Family History (Last Reviewed 02/23/20 @ 09:08 by Lilia Tejeda RN) Mother Renal failure HTN (hypertension) Father Pancreatic cancer Brother Pancreatitis - Social History Smoking Status: Never smoker Substance Use Type: None Home Medications & Allergies Allergies egg Adverse Reaction (Verified 02/02/20 09:29) Diarrhea cream cheese Adverse Reaction (Uncoded 02/02/20 09:29) Gastrointestinal Upset toft's ice cream Adverse Reaction (Uncoded 02/02/20 09:29) Gastrointestinal Upset Home Medications alendronate 70 mg PO QWEEK 02/02/20 [History Confirmed 02/23/20] calcium-vitamin D3-vitamin K [Viactiv] 1 tab PO BID 02/02/20 [History Confirmed 02/23/20] cholecalciferol (vitamin D3) [Vitamin D3] 400 unit PO DAILY 02/02/20 [History Confirmed 02/23/20] montelukast 10 mg PO QPM 02/02/20 [History Confirmed 02/23/20] hydrocodone-acetaminophen [Oxford] 1 - 2 tab PO Q4-6H PRN 4 Days #20 tab 02/07/20 [Rx Confirmed 02/23/20] ibuprofen 600 mg PO Q4-6H PRN 10 Days #20 tab 02/07/20 [Rx Confirmed 02/23/20] anastrozole 1 mg PO DAILY 90 Days #90 tab 02/23/20 [Rx] Objective - Height/Weight Height/Weight: Height 5 ft 1.61 in Weight 65.045 kg - Vital Signs Vital Signs: 03/22/20 10:26 Temperature 98.7 F Pulse Rate [Right Brachial] 106 H Respiratory Rate 20 Blood Pressure [Right Arm] 151/89 H 02 Sat by Pulse Oximetry 98 - Emotional Needs Assessment Emotional Needs Assessment: Emotional Needs Identified? Yes Distress Screening Total 0 Support System Spouse Physical Exam Narrative: Patient is in no acute distress. She appears overall healthy. Head is atraumatic normocephalic Eyes show no evidence of scleral icterus. Extraocular muscles are intact Cardiac exam is negative Lungs audibly with good air exchange Neurologic exam shows no evidence of sensory, motor or proprioceptive defects. Endocrinologic exam is negative Dermatologic exam is negative Psychiatric exam is negative Assessment and Plan (1) Breast cancer Patient will need anastrozole for 5 years. So far her tolerance is good. We will watch for any alopecia and of course joint complaints/arthralgias. I will have her stop the anastrozole while she is on radiation therapy. I will see herin 6 months. She knows to call if she has any progressive symptoms. - Time with Patient Coordination of Care & Counseling Time: Greater than 50% of time spent with patient was for coordination of care (as documented) and [id number] counseling of patient and/or family. Dictated By: Cruz Ambriz MD DD/ [id number] Signed By: <Electronically signed by MD Cruz Ambriz> 03/22/20 6828 [facility] Work Phone: [phone] Consult note Author Cruz Ambriz [facility] February 23, 2020 10:07am Note Date/Time February 23, 2020 9:5 2am [facility] [place] [address] Hem/Onc Consult Note - OP Signed Patient: Laura Cunha MR#: [id number] : 1955 Acct:[id number] Age/Sex: 64 / F Type: REG RCR Copies to: DO Michelle Astudillo MD~ HPI Date/Time of Service: Date of Service: 02/23/2020 Time of Service: 09:50 Referring Provider/PCP: Referring Provider: Jeremy Mcpherson DO PCP: Michelle Joshi MD - History of Present Illness Reason for Consultation: Breast cancer Chief Complaint: New patient appt breast cancer HPI: Laura is a 64-year-old female who presents with breast cancer. She was taken to surgery 02/07/20 with the findings of a 1 cm ER positive and MD positive, HER-2 negative invasive ductal carcinoma with tubulo-?lobular features. The tumor wasgrade 1 with 0 of 4 lymph nodes involved. She has recovered well post surgery. She does have a little bit of swelling in the left breast from the surgery but has done very well overall. She will be seeing Dr. Mcpherson today for follow-up. 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 [facility] - Medical History Medical History: Medical History (Last Reviewed 02/23/20 @ 09:07 by Lilia Tejeda RN) Asthma Breast cancer left Endometriosis determined by laparoscopy Nasal drainage Osteoporosis - Surgical History Surgical History: Surgical History (Last Reviewed 02/23/20 @ 09:07 by Lilia Tejeda RN) History of nasal cauterization hx nasal fissure - Family History Family History: Family History (Last Reviewed 02/23/20 @ 09:08 by Lilia Tejeda RN) Mother Renal failure HTN (hypertension) Father Pancreatic cancer Brother Pancreatitis - Social History Smoking Status: Never smoker Substance Use Type: None Home Medications & Allergies Allergies egg Adverse Reaction (Verified 02/02/20 09:29) Diarrhea cream cheese Adverse Reaction (Uncoded 02/02/20 09:29) Gastrointestinal Upset toft's ice cream Adverse Reaction (Uncoded 02/02/20 09:29) Gastrointestinal Upset Home Medications alendronate 70 mg PO QWEEK 02/02/20 [History Confirmed 02/23/20] calcium-vitamin D3-vitamin K [Viactiv] 1 tab PO BID 02/02/20 [History Confirmed 02/23/20] cholecalciferol (vitamin D3) [Vitamin D3] 400 unit PO DAILY 02/02/20 [History Confirmed 02/23/20] montelukast 10 mg PO QPM 02/02/20 [History Confirmed 02/23/20] hydrocodone-acetaminophen [Oxford] 1 - 2 tab PO Q4-6H PRN 4 Days #20 tab 02/07/20 [Rx Confirmed 02/23/20] ibuprofen 600 mg PO Q4-6H PRN 10 Days #20 tab 02/07/20 [Rx Confirmed 02/23/20] anastrozole 1 mg PO DAILY 90 Days #90 tab 02/23/20 [Rx] Objective - Height/Weight Height/Weight: Height 5 ft 1.61 in Weight 65.3 kg - Vital Signs Vital Signs: 02/23/20 09:12 Temperature 96.7 F L Pulse Rate [Right Brachial] 116 H Respiratory Rate 20 Blood Pressure [Right Arm] 144/84 H 02 Sat by Pulse Oximetry 99 - Emotional Needs Assessment Emotional Needs Assessment: Emotional Needs Identified? Yes Distress Screening Total 3 Physical Exam Narrative: Patient is in no acute distress. She appears overall healthy. Head is atraumatic normocephalic Eyes show no evidence of scleral icterus. Extraocular muscles are intact Cardiac exam is negative Lungs audibly with good air exchange Neurologic exam shows no evidence of sensory, motor or proprioceptive defects. Endocrinologic exam is negative Dermatologic exam is negative Psychiatric exam is negative Assessment and Plan - Chemo Plan Chemo Plan (Dose, Rate, Freq): BREAST CANCER The patient is presenting with a T1N0 grade 1 breast cancer, ER/MD positive, HER-2 negative. I discussed with her the indications for adjuvant therapy and will recommend to her 5 years of hormonal therapy with adjuvant radiation therapy as well. I will recommend to her 5 years of an aromatase inhibitor and did review at length the side effects, risks, and complications of aromatase inhibitors particularly joint complaints, arthralgias and night sweats. Because of the COVID-19 problem radiation will be put on hold for a few months. I will start her today on anastrozole and see her in 1 month. I did tell her tocall me immediately for any potential side effects related to therapy. - Time with Patient Coordination of Care & Counseling Time: Greater than 50% of time spent with patient was for coordination of care (as documented) and [id number] counseling of patient and/or family. Dictated By: Cruz Ambriz MD DD/ 0950 Signed By: <Electronically signed by MD Cruz Ambriz> 02/23/20 1007 [facility] Work Phone: Evaluation note* Diagnosis Onset Date Resolution Status Breast cancer acute [id number] acute Osteoporosis acute Sinus congestion acute Osteopenia chronic [facility] Work Phone: Evaluation noteNo assessment information available [facility] Work Phone: Evaluation noteNo InformationNotwo [facility] [place] [place] Other History general Narrative - Reported* Type Description Date Medical History Problem Title : comp liance with medical treatment, Problem Description : compliance with medical treatment, Problem Comment : Done, Problem Status : Active,, Medical History Problem Title : no k nown problems, Problem Description : no known problems, Problem Comment : F, Problem Status : Active,, Medical History Problem Title : past medical history E&M, Problem Description : past medical history E&M, Problem Comment : Asthma Osteopenia AR, Problem Status : Active,, Medical History Problem Title : past medical history reviewed, Problem Description : past medical history reviewed, Problem Comment : reviewed - no changes required, Problem Status : Active,, Medical History Problem Title : Prob lems Reconciled, Problem Status : Active,, Medical History Problem Title : Unsp ecified Diagnosis, Problem Status : Active,, Surgical History EXP LAP Surgical History LEFT BREAST LUMPECTOMY W SENTIN EL LYMPG NODE BIOPSY Surgical History FOOT SURGERY Hospitalization History SEE SURIGCAL [employer] Other History general Narrative - Reported* Type Description Date Surgical History EXP LAP Surgical History LEFT BREAST LUMPECTOMY W SENTIN EL LYMPG NODE BIOPSY Surgical History FOOT SURGERY Hospitalization History SEE SURIGCAL HX [facility] Other Progress note Author Chaz Hernandez [facility] October 17, 2022 2:35pm Note Date/Time October 17, 2022 2 :31pm [facility] at [address] [address] Hem/Onc Follow Up Note - OP Signed Patient: Laura Cunha MR#: [id number] : 1955 Acct:[id number] Age/Sex: 67 / F Type: REG RCR Copies to: DO Michelle Astudillo MD~ Date of Service: 10/17/2022 Time of Service: 14:30 - Assessment & Plan (1) Carcinoma of upper-outer quadrant of left breast in female, estrogen receptor positive Plan: 59-year-old female with a history of stage I breast cancer, ER positive, MD positive, HER2 negative, status postlumpectomy and radiation. He started endocrine therapy in February 2020 initially with anastrozole, changed to letrozolein September 2020 due to right shoulder pain. The pain has gone away after stopping anastrozole. She tolerates letrozole really well without any significant complaints. She reports occasional hot flashes, but tolerable. Shedenies joint pain or muscle pain. Her last mammogram in February was benign. There is no clinical evidence of disease recurrence. She will continue letrozole for total 5 years. dexa 04/2021 was normal. Tolerates well overall. (2) Osteopenia Follow Up Instructions: cont letrozole. f/u in about a year. mammo should already be scheduled for february.. - History of Present Illness Chief Complaint: Patient is here today for a 6 month follow up visit for breast cancer HPI: She underwent left lumpectomy and sentinel lymph node biopsy 02/07/20, pathologyreported a 1 cm ER positive, MD positive, HER-2 negative invasive ductal carcinoma with tubulo-?lobular features, grade 1, 0 of 4 lymph nodes involved. After radiation she was started on anastrazole February 2020. In September 2020 shewas seen in follow-up with complaint of new right shoulder pain. The anastrozole was stopped, and the right shoulder pain resolved. She started letrozole 2.5 mg daily and she has tolerated this medicine really well without any problems. Specifically there are no complaints of joint pain. Her DEXA scan in April 2021 showed osteopenia in L spine (T -1.2). Her last mammogram in February 2022 was benign. continue calcium and vitamin D. - Physical Exam ECOG PS: 0 General : patient is alert and oriented to person place and time, no acute distress. Neck: no JVD or thyromegaly. Lymph: no cervical, supraclavicular, axillary adenopathy. Heart: regular rate and rhythm no murmurs rubs or gallops. Abdomen: soft nontender nondistended, no hepatosplenomegaly. Lungs: cta bl, no wheezes, rales, rhonchi. Extremities: no clubbing cyanosis. Breast: Bilateral breast exam deferred. just had two weeks ago with Dr. Mcpherson. - Time with Patient Coordination of Care & Counseling Time: Greater than 50% of time spent with patient was for coordination of care (as documented) and [id number]-[id number] counseling of patient and/or family. [facility] - Medical History Medical History: Medical History (Last Reviewed 03/22/20 @ 14:19 by Teresa Nunn MD) Asthma Breast cancer left Endometriosis determined by laparoscopy Nasal drainage Osteoporosis - Surgical History Surgical History: Surgical History (Last Reviewed 03/22/20 @ 14:19 by Teresa Nunn MD) History of nasal cauterization hx nasal fissure - Family History Family History: Family History (Last Reviewed 03/22/20 @ 14:19 by Teresa Nunn MD) Mother Renal failure HTN (hypertension) Father Pancreatic cancer Brother Pancreatitis - Social History Smoking Status: Never smoker Substance Use Type: None Additional Data - Additional Objective Data Height/Weight: Height 5 ft 1 in Weight 64.9 kg Vital Signs: 10/17/22 14:06 Temperature 97.8 F Pulse Rate [Right Brachial] 102 H Respiratory Rate 16 Blood Pressure [Right Arm] 122/87 02 Sat by Pulse Oximetry 99 Oxygen Delivery Method Room Air Distress Screening: RN Distress Screening Start: 02/23/20 08:57 Freq: Status: Active Protocol: Document 04/17/20 13:53 AD (Rec: 04/17/20 13:53 AD [id number]) Distress Screening Distress Score: 0 No worry/distress Distress Screening Total 0 - Home Medications and Allergies Allergies/Adverse Reactions: Allergies egg Adverse Reaction (Verified 10/17/22 14:04) Diarrhea cream cheese Adverse Reaction (Uncoded 10/17/22 14:04) Gastrointestinal Upset toft's ice cream Adverse Reaction (Uncoded 10/17/22 14:04) Gastrointestinal Upset Home Medications: Home Medications calcium 650 mg-vitamin D3 12.5 mcg-vitamin K 40 mcg chewable tablet (Viactiv) 1 tab PO BID bone health 02/02/20 [History Confirmed 10/17/22] cholecalciferol (vitamin D3) 10 mcg (400 unit) capsule (Vitamin D3) 400 unit PO DAILY 02/02/20 [History Confirmed 10/17/22] montelukast 10 mg tablet 10 mg PO QPM asthma 02/02/20 [History Confirmed 10/17/22] letrozole 2.5 mg tablet 2.5 mg PO DAILY 90 days #90 tabs 10/17/22 [Rx] Dictated By: Chaz Hernandez II, DO DD/ 1430 Signed By: <Electronically signed by Chaz Hernandez II, DO> 10/17/22 1435 [facility] Work Phone: Summary Purpose Family History No Family History Records Found Relationship Condition Age at Onset Recorded Date/T miriam Not Specified Renal failure Unknown Hypertension Unknown father Malignant neoplasm of pancreas Unknown brother Pancreatitis Unknown Advance Directives No Advanced Directives Records Found Advance Directive Response Recorded Date/ Time Advance Directives No January 31 1:34pm Advance Directive Response Recorded Date/ Time Advance Directives No January 31 2:34pm Chief Complaint and Reason for Visit Chief Complaint Breast Cancer Reason for Visit Breast cancer [id number] Osteoporosis Sinus congestion Osteopenia Chief Complaint z85.3 Additional Source Comments INFORMATION SOURCE (unrecogn ized section and content) DATE CREATED AUTHOR 09/05/2022 [facility] DATE CREATED AUTHOR AUTHOR'S ORGANIZ ATION 04/17/2023 [facility] DATE CREATED AUTHOR AUTHOR'S ORGANIZ ATION 09/15/2023 [facility] DATE CREATED AUTHOR AUTHOR'S ORGANIZ ATION 09/28/2023 [facility] EPIC Care Teams (unrecognized sec tion and content) Team Status: Active Member Role Status Dates Michelle Joshi MD Primary Care Provider Active Jeremy Mcpherson DO Referring Provider Active Teresa Nunn MD Attending Provider Active Team Status: Active Member Role Status Dates Michelle Joshi MD Primary Care Provider Active Team Status: Inactive Member Role Status Dates Michelle Joshi MD Primary Care Provider Active Jeremy Mcpherson DO Attending Provider Active Goals (unrecognized section and content) Goals may be documented in a n alternate sectionGoals may be documented in an alternate sectionNo InformationNo InformationNo InformationNo Information REASON FOR VISIT (unrecogniz ed section and content) WELLNESS MBGastro office not ethyroid [facility] FOR RECORDS PERTAINING TO PATIENTS WHO ARE OR HAVE BEEN ENROLLED IN A CHEMICAL DEPENDENCY/SUBSTANCEABUSE PROGRAM, SOME INFORMATION MAY BE OMITTED. This clinical summary was aggregated from multiple sources. Caution should be exercised in using it in the provision of clinical care. This summary normalizes information from multiple sources, and as a consequence, information in this document may materially change the coding, format and clinical context of patient data. In addition, data may be omitted in some cases. CLINICAL DECISIONS SHOULD BE BASED ON THE PRIMARY CLINICAL RECORDS. [employer] provides no warranty or guarantee of the accuracy or completeness of information in this document.
== END 2023-09-16 12:32 | disposition home or self-care (01) ==
LOC: LAB 12:35
PROVIDERS: PCP Family Medicine; Visit Provider Family Medicine
DX: E03.9 Hypothyroidism, unspecified (principal); E55.9 Vitamin D deficiency, unspecified
CPT/HCPCS: 36415; 82306; 84439; 84443